=== PATIENT | female | born 1975 | race Caucasian/White ===

== ENCOUNTER 2018-09-25 12:46 | Emergency (ER) | payer MEDICARE ==
[~2018-09-25] VITALS: Ht 154.9 cm; Wt 72.7 kg
[~2018-09-25 12:46] MED LIST: DEXL30CA3 PO; ONDA4TAB6 PO; ONDA8TAB9 PO; POTA20TA19 PO; PROM25SU46 RC; ZOF4T PO
[2018-09-25] MEDS ORDERED: normal saline 1000ML IV soln IV ONE ×2 (13:10→15:15)
[2018-09-25] MEDS ORDERED: ondansetron/PF 4mg/2ml inj IV ONE ×3 (13:10→17:30)
[2018-09-25] MEDS ORDERED: HYDROmorphone 1 mg/ml syringe IV ONE ×3 (13:10→17:30)
[2018-09-25 14:41] LABS: BASOPHILS # (AUTO) 0.1 X10'3 (0-0.2); BASOPHILS % (AUTO) 0.7 % (0-1); EOSINOPHILS # (AUTO) 0.1 X10'3 (0-0.9); EOSINOPHILS % (AUTO) 0.7 % (0-6); HEMATOCRIT 46.8 % (35.0-45.0); HEMOGLOBIN 15.6 g/dl (12.0-16.0); LYMPHOCYTES # (AUTO) 2.6 X10'3 (1.1-4.8); LYMPHOCYTES % (AUTO) 15.4 % (21-51); MEAN CORPUSCULAR HEMOGLOBIN 29.8 PG (27.0-31.0); MEAN CORPUSCULAR HGB CONC 33.3 g/dL (33.0-36.5); MEAN CORPUSCULAR VOLUME 89.4 FL (78-98); MONOCYTES # (AUTO) 0.9 X10'3 (0-0.9); MONOCYTES % (AUTO) 5.4 % (2-12); NEUTROPHILS % (AUTO) 77.8 % (42-75); PLATELET COUNT 276 X10'3 (140-440); RED BLOOD COUNT 5.24 X10'6 (4.20-5.60); RED CELL DISTRIBUTION WIDTH 13.9 % (11.5-14.5); WHITE BLOOD COUNT 16.7 X10'3 (4.5-11.0)
[2018-09-25 14:43] LABS: URINE HCG NEGATIVE (NEG)
[2018-09-25 14:47] LABS: CLARITY,URINE CLEAR (Clear); COLOR,URINE YELLOW (Yellow); GLUCOSE, URINE NEGATIVE (Neg); KETONES,URINE NEGATIVE (Neg); LEUKOCYTE ESTERASE ,URINE NEGATIVE (Neg); NITRITES, URINE NEGATIVE (Neg); OCCULT BLOOD,URINE NEGATIVE (Neg); PH,URINE 5.5 (4.8-8.0); PROTEIN,URINE NEGATIVE (Neg); UROBILINOGEN,URINE 0.2 E.U/dL (0.2-1.0)
[2018-09-25 14:48] LABS: UA COLLECTION TYPE CLN CATCH MIDSTREAM
[2018-09-25 14:50] LABS: PROTHROMBIN TIME 9.9 SECONDS (9.0-12.0)
[2018-09-25 14:53] LABS: ALANINE AMINOTRANSFERASE 26 U/L (12-78); ALBUMIN 3.7 G/DL (3.4-5.0); ALBUMIN/GLOBULIN RATIO 0.9 (1.1-1.5); ALKALINE PHOSPHATASE 118 IU/L (46-116); ANION GAP 11 (8-16); ASPARTATE AMINO TRANSFERASE 17 U/L (10-37); BILIRUBIN,TOTAL 0.2 MG/DL (0.1-1.0); BLOOD UREA NITROGEN 11 MG/DL (7-18); BUN/CREATININE RATIO 14.9 (6.6-38.0); CALCIUM 9.5 MG/DL (8.5-10.1); CHLORIDE 105 MMOL/L (99-107); CREATININE 0.74 MG/DL (0.40-0.90); GLUCOSE 112 MG/DL (70-104); LIPASE 54 U/L (73-393); POTASSIUM 4.1 MMOL/L (3.5-5.1); SODIUM 141 MMOL/L (135-145); TOTAL CARBON DIOXIDE 25.5 MMOL/L (24-32); TOTAL PROTEIN 7.9 G/DL (6.4-8.2); eGFR 85 ML/MIN
[2018-09-25 14:56] LABS: PLATELET ESTIMATE NORMAL; TOTAL CELLS COUNTED 100
--- NOTE | 2018-09-25 14:57 | NUR ---
PT TO CT
[2018-09-25] MEDS ORDERED: levoFLOXACIN-Levaquin 750MG/D5 150 ML IV ONE (15:05)
--- NOTE | 2018-09-25 15:12 | NUR ---
PT BACK FROM CT
--- NOTE | 2018-09-25 15:39 | NUR ---
BRYCE LEE MADE AWARE PATIENT'S PEG TUBE FLUSHED (PER ORDER) WITHOUT DIFFICULTY, PATIENT REPORTED SLIGHT NAUSEA, PAIN 9/10 TO UPPER ABDOMEN. PA TO ENTER ORDERS.
[2018-09-25] MEDS ORDERED: LEVO500T89 PO (17:24)
[2018-09-25 17:55] VITALS: BP 127/66
== END 2018-09-25 17:57 | disposition home or self-care (01) ==
LOC: ER 12:47
DX: K94.22 Gastrostomy infection (principal); I10 Essential (primary) hypertension; J44.9 Chronic obstructive pulmonary disease, unspecified; K21.9 Gastro-esophageal reflux disease without esophagitis; G89.29 Other chronic pain; Z90.49 Acquired absence of other specified parts of digestive tract; Z90.710 Acquired absence of both cervix and uterus; Z98.890 Other specified postprocedural states; Z88.0 Allergy status to penicillin; Z88.5 Allergy status to narcotic agent; Z88.8 Allergy status to other drugs, medicaments and biological substances; Z88.1 Allergy status to other antibiotic agents; Z79.899 Other long term (current) drug therapy
CPT/HCPCS: 36415; 71045; 74176; 80053; 81003; 81025; 83605; 83690; 85025; 85610; 87040; 96365; 96366; 96375; 96376; 99284; J1170; J1956; J2405; J7030

== ENCOUNTER 2018-10-05 21:38 | Emergency (ER) | payer MEDICARE, MEDICAID ==
[~2018-10-05] VITALS: Ht 154.9 cm; Wt 75.0 kg
[~2018-10-05 21:38] MED LIST changes: +LEVO500T89 PO
--- NOTE | 2018-10-05 22:15 | NUR ---
BRYCE RODRIGEZ AT BEDSIDE WITH PT
[2018-10-05] MEDS ORDERED: azithromycin 250mg tablet PO ONE (22:25)
[2018-10-05] MEDS ORDERED: CefTRIAXone 250MG IM Kit w/LIDOcaine IM ONE (22:25)
[2018-10-05 22:47] LABS: BASOPHILS # (AUTO) 0.2 X10'3 (0-0.2); BASOPHILS % (AUTO) 1.3 % (0-1); EOSINOPHILS # (AUTO) 0.1 X10'3 (0-0.9); EOSINOPHILS % (AUTO) 0.6 % (0-6); HEMATOCRIT 45.3 % (35.0-45.0); HEMOGLOBIN 15.4 g/dl (12.0-16.0); LYMPHOCYTES # (AUTO) 2.7 X10'3 (1.1-4.8); LYMPHOCYTES % (AUTO) 19.3 % (21-51); MEAN CORPUSCULAR HEMOGLOBIN 29.9 PG (27.0-31.0); MEAN CORPUSCULAR HGB CONC 34.1 g/dL (33.0-36.5); MEAN CORPUSCULAR VOLUME 87.8 FL (78-98); MEAN PLATELET VOLUME 8.3 FL (7.4-10.4); MONOCYTES # (AUTO) 0.8 X10'3 (0-0.9); MONOCYTES % (AUTO) 5.6 % (2-12); NEUTROPHILS # (AUTO) 10.2 X10'3 (1.8-7.7); NEUTROPHILS % (AUTO) 73.2 % (42-75); PLATELET COUNT 346 X10'3 (140-440); RED BLOOD COUNT 5.16 X10'6 (4.20-5.60); RED CELL DISTRIBUTION WIDTH 13.8 % (11.5-14.5)
[2018-10-05 23:00] LABS: ALANINE AMINOTRANSFERASE 28 U/L (12-78); ALBUMIN/GLOBULIN RATIO 0.9 (1.1-1.5); ALKALINE PHOSPHATASE 123 IU/L (46-116); ANION GAP 10 (8-16); ASPARTATE AMINO TRANSFERASE 14 U/L (10-37); BILIRUBIN,TOTAL 0.2 MG/DL (0.1-1.0); BLOOD UREA NITROGEN 9 MG/DL (7-18); BUN/CREATININE RATIO 12.5 (6.6-38.0); CALCIUM 9.8 MG/DL (8.5-10.1); CHLORIDE 104 MMOL/L (99-107); CREATININE 0.72 MG/DL (0.40-0.90); GLUCOSE 109 MG/DL (70-104); POTASSIUM 3.7 MMOL/L (3.5-5.1); SODIUM 140 MMOL/L (135-145); TOTAL PROTEIN 8.6 G/DL (6.4-8.2); eGFR 88 ML/MIN
[2018-10-05] MEDS ORDERED: cefepime 2g/NS 100ml ADVANTAGE 100 ML IV ONE (23:40)
[2018-10-05] MEDS ORDERED: iohexol 300mg/ml 100ml inj. ONE (23:53)
[2018-10-06] MEDS ORDERED: TETanus/Pertussis (Acell)/Diphther VAC/PF (Tdap-Adult) 0.5ml syringe IM ONE (00:20)
[2018-10-06] MEDS ORDERED: ondansetron 4mg rapidly disintigrating tab PO ONE (00:30)
[2018-10-06 01:05] VITALS: BP 144/84
[2018-10-06] MEDS ORDERED: CEFP100T7 PO (01:22)
== END 2018-10-06 01:37 | disposition home or self-care (01) ==
LOC: ER 21:38
DX: K94.29 Other complications of gastrostomy (principal); R10.10 Upper abdominal pain, unspecified; I10 Essential (primary) hypertension; J44.9 Chronic obstructive pulmonary disease, unspecified; K21.9 Gastro-esophageal reflux disease without esophagitis; G89.29 Other chronic pain; Z90.49 Acquired absence of other specified parts of digestive tract; Z90.710 Acquired absence of both cervix and uterus; Z98.890 Other specified postprocedural states; Z88.0 Allergy status to penicillin; Z88.5 Allergy status to narcotic agent; Z88.1 Allergy status to other antibiotic agents; Z88.8 Allergy status to other drugs, medicaments and biological substances; Z79.899 Other long term (current) drug therapy
CPT/HCPCS: 36415; 74177; 80053; 85025; 90471; 90715; 96365; 99284; J0692; Q9967

== ENCOUNTER 2018-11-20 17:03 | Emergency (ER) | payer MEDICARE, MEDICAID ==
[~2018-11-20] VITALS: Ht 154.9 cm; Wt 81.0 kg
[~2018-11-20 17:03] MED LIST changes: +CEFP100T7 PO; -LEVO500T89 PO
[2018-11-20] MEDS ORDERED: normal saline 1000ML IV soln IV ONE (17:30)
--- NOTE | 2018-11-20 18:13 | NUR ---
having hard time getting iv established
[2018-11-20 18:22] LABS: CLARITY,URINE CLEAR (Clear); COLOR,URINE YELLOW (Yellow); GLUCOSE, URINE NEGATIVE (Neg); KETONES,URINE NEGATIVE (Neg); LEUKOCYTE ESTERASE ,URINE NEGATIVE (Neg); NITRITES, URINE NEGATIVE (Neg); OCCULT BLOOD,URINE NEGATIVE (Neg); PH,URINE 7.5 (4.8-8.0); PROTEIN,URINE NEGATIVE (Neg); UROBILINOGEN,URINE 0.2 E.U/dL (0.2-1.0)
[2018-11-20 18:26] LABS: UA COLLECTION TYPE CLN CATCH MIDSTREAM
[2018-11-20] MEDS ORDERED: magnesium 2GM in 50ml NS 50 ML IV ONE (20:05)
[2018-11-20 20:11] LABS: BASOPHILS # (AUTO) 0.2 X10'3 (0-0.2); BASOPHILS % (AUTO) 1.3 % (0-1); EOSINOPHILS # (AUTO) 0.1 X10'3 (0-0.9); EOSINOPHILS % (AUTO) 0.7 % (0-6); HEMATOCRIT 43.3 % (35.0-45.0); HEMOGLOBIN 14.7 g/dl (12.0-16.0); LYMPHOCYTES # (AUTO) 3.1 X10'3 (1.1-4.8); LYMPHOCYTES % (AUTO) 27.3 % (21-51); MEAN CORPUSCULAR HEMOGLOBIN 30.3 PG (27.0-31.0); MEAN CORPUSCULAR HGB CONC 33.9 g/dL (33.0-36.5); MEAN CORPUSCULAR VOLUME 89.4 FL (78-98); MONOCYTES # (AUTO) 0.7 X10'3 (0-0.9); MONOCYTES % (AUTO) 6.5 % (2-12); NEUTROPHILS # (AUTO) 7.3 X10'3 (1.8-7.7); NEUTROPHILS % (AUTO) 64.2 % (42-75); PLATELET COUNT 267 X10'3 (140-440); RED BLOOD COUNT 4.84 X10'6 (4.20-5.60); RED CELL DISTRIBUTION WIDTH 14.2 % (11.5-14.5); WHITE BLOOD COUNT 11.3 X10'3 (4.5-11.0)
[2018-11-20] MEDS ORDERED: CefTRIAXone/D5W-Rocephin 1gm 50 ML IV ONE (20:15)
[2018-11-20] MEDS ORDERED: HYDROmorphone inj. 0.5 MG/0.5 ML DISP.SYRIN IV ONE (20:15)
[2018-11-20] MEDS ORDERED: ondansetron/PF 4mg/2ml inj IV ONE (20:15)
[2018-11-20 20:27] LABS: ALANINE AMINOTRANSFERASE 32 U/L (12-78); ALBUMIN 3.6 G/DL (3.4-5.0); ALBUMIN/GLOBULIN RATIO 0.9 (1.1-1.5); ALKALINE PHOSPHATASE 114 IU/L (46-116); ANION GAP 8 (8-16); ASPARTATE AMINO TRANSFERASE 26 U/L (10-37); BILIRUBIN,TOTAL 0.2 MG/DL (0.1-1.0); BLOOD UREA NITROGEN 9 MG/DL (7-18); BUN/CREATININE RATIO 12.5 (6.6-38.0); CALCIUM 8.6 MG/DL (8.5-10.1); CHLORIDE 109 MMOL/L (99-107); CREATININE 0.72 MG/DL (0.40-0.90); GLUCOSE 83 MG/DL (70-104); SODIUM 144 MMOL/L (135-145); TOTAL CARBON DIOXIDE 26.8 MMOL/L (24-32); TOTAL PROTEIN 7.6 G/DL (6.4-8.2); eGFR 88 ML/MIN
[2018-11-20 20:29] LABS: POTASSIUM 4.3 MMOL/L (3.5-5.1)
[2018-11-20 20:41] LABS: URINE HCG NEGATIVE (NEG)
[2018-11-20] MEDS ORDERED: SULF1TAB49 PO (21:25)
[2018-11-20] MEDS ORDERED: CEPH-572 PO (21:25)
[2018-11-20 21:46] VITALS: BP 139/96
== END 2018-11-20 21:48 | disposition home or self-care (01) ==
LOC: ER 17:04
DX: L03.311 Cellulitis of abdominal wall (principal); R00.0 Tachycardia, unspecified; I10 Essential (primary) hypertension; J44.9 Chronic obstructive pulmonary disease, unspecified; K31.84 Gastroparesis; K21.9 Gastro-esophageal reflux disease without esophagitis; G89.29 Other chronic pain; Z87.11 Personal history of peptic ulcer disease; Z90.49 Acquired absence of other specified parts of digestive tract; Z98.890 Other specified postprocedural states; Z90.710 Acquired absence of both cervix and uterus; Z88.6 Allergy status to analgesic agent; Z88.0 Allergy status to penicillin; Z88.5 Allergy status to narcotic agent
CPT/HCPCS: 36415; 80053; 81003; 81025; 83605; 83735; 84145; 85025; 85610; 87040; 96365; 96375; 99283; J0696; J1170; J2405; J3475; J7030

== ENCOUNTER 2018-11-30 21:52 | Emergency (ER) | payer MEDICARE, MEDICAID ==
[~2018-11-30] VITALS: Ht 154.9 cm; Wt 77.0 kg
[~2018-11-30 21:52] MED LIST changes: +SULF1TAB49 PO
[2018-11-30 22:35] LABS: CLARITY,URINE CLEAR (Clear); COLOR,URINE YELLOW (Yellow); GLUCOSE, URINE NEGATIVE (Neg); KETONES,URINE NEGATIVE (Neg); LEUKOCYTE ESTERASE ,URINE NEGATIVE (Neg); NITRITES, URINE NEGATIVE (Neg); OCCULT BLOOD,URINE NEGATIVE (Neg); PH,URINE 6.5 (4.8-8.0); PROTEIN,URINE NEGATIVE (Neg); UROBILINOGEN,URINE 0.2 E.U/dL (0.2-1.0)
[2018-11-30 22:40] LABS: UA COLLECTION TYPE CLN CATCH MIDSTREAM
[2018-11-30] MEDS ORDERED: normal saline 1000ml 1,000 ML IV ONE (22:45)
[2018-11-30 23:07] LABS: BASOPHILS # (AUTO) 0.2 X10'3 (0-0.2); BASOPHILS % (AUTO) 1.9 % (0-1); EOSINOPHILS # (AUTO) 0.3 X10'3 (0-0.9); EOSINOPHILS % (AUTO) 2.4 % (0-6); HEMATOCRIT 40.5 % (35.0-45.0); HEMOGLOBIN 13.8 g/dl (12.0-16.0); LYMPHOCYTES # (AUTO) 4.4 X10'3 (1.1-4.8); LYMPHOCYTES % (AUTO) 40.7 % (21-51); MEAN CORPUSCULAR HEMOGLOBIN 30.6 PG (27.0-31.0); MEAN CORPUSCULAR HGB CONC 34.1 g/dL (33.0-36.5); MEAN CORPUSCULAR VOLUME 89.7 FL (78-98); MEAN PLATELET VOLUME 8.9 FL (7.4-10.4); MONOCYTES # (AUTO) 1.1 X10'3 (0-0.9); NEUTROPHILS # (AUTO) 4.8 X10'3 (1.8-7.7); PLATELET COUNT 267 X10'3 (140-440); RED BLOOD COUNT 4.52 X10'6 (4.20-5.60); RED CELL DISTRIBUTION WIDTH 14.4 % (11.5-14.5); WHITE BLOOD COUNT 10.8 X10'3 (4.5-11.0)
[2018-11-30] MEDS ORDERED: iohexol 300mg/ml 100ml inj. ONE (23:10)
--- NOTE | 2018-11-30 23:13 | NUR ---
ATTEMPTED IV, DID NOT THREAD. PT HAS NO EJS EITHER. AWAITING FOR THE MACHINE
[2018-11-30 23:26] LABS: PARTIAL THROMBOPLASTIN TIME 26 SECONDS (22-32)
[2018-11-30 23:29] LABS: ALANINE AMINOTRANSFERASE 35 U/L (12-78); ALBUMIN 3.5 G/DL (3.4-5.0); ALBUMIN/GLOBULIN RATIO 0.9 (1.1-1.5); ALKALINE PHOSPHATASE 114 IU/L (46-116); ANION GAP 5 (8-16); ASPARTATE AMINO TRANSFERASE 19 U/L (10-37); BILIRUBIN,TOTAL 0.2 MG/DL (0.1-1.0); BLOOD UREA NITROGEN 9 MG/DL (7-18); BUN/CREATININE RATIO 12.9 (6.6-38.0); CALCIUM 9.1 MG/DL (8.5-10.1); CHLORIDE 107 MMOL/L (99-107); GLUCOSE 107 MG/DL (70-104); POTASSIUM 3.9 MMOL/L (3.5-5.1); SODIUM 140 MMOL/L (135-145); TOTAL CARBON DIOXIDE 28.2 MMOL/L (24-32); TOTAL PROTEIN 7.2 G/DL (6.4-8.2); eGFR 90 ML/MIN
[2018-12-01 00:03] VITALS: BP 145/97
[2018-12-01] MEDS ORDERED: ketorolac tromethamine 15mg/ml inj. IV ONE (00:10)
[2018-12-01] MEDS ORDERED: ketorolac trometh. 30mg/ml inj. IV ONE (00:10)
--- NOTE | 2018-12-01 00:14 | NUR ---
pt refuses toradol for pain stating it is ineffective/doesn't work. pt takes methadone at home for pain control. Morphine listed as an allergen.
[2018-12-01] MEDS ORDERED: fentaNYL/PF 50MCG/1 ML 2ML syringe IV ONE (00:35)
== END 2018-12-01 01:35 | disposition home or self-care (01) ==
LOC: ER 21:53
DX: T85.79XA Infection and inflammatory reaction due to other internal prosthetic devices, implants and grafts, initial encounter (principal); I10 Essential (primary) hypertension; J44.9 Chronic obstructive pulmonary disease, unspecified; K21.9 Gastro-esophageal reflux disease without esophagitis; Z87.11 Personal history of peptic ulcer disease; G89.29 Other chronic pain; Z90.49 Acquired absence of other specified parts of digestive tract; Z90.710 Acquired absence of both cervix and uterus; Z98.890 Other specified postprocedural states; Z88.6 Allergy status to analgesic agent; Z88.8 Allergy status to other drugs, medicaments and biological substances; Z88.0 Allergy status to penicillin; Z88.5 Allergy status to narcotic agent; Z79.899 Other long term (current) drug therapy; Y92.89 Other specified places as the place of occurrence of the external cause
CPT/HCPCS: 36415; 74177; 80053; 81003; 83605; 84145; 85025; 85610; 85730; 96374; 99284; J1885; J3010; J7030; Q9967; 96361

== ENCOUNTER 2018-12-22 01:49 | Emergency (ER) | payer MEDICARE, MEDICAID ==
[~2018-12-22] VITALS: Ht 154.9 cm; Wt 83.6 kg
[~2018-12-22 01:49] MED LIST changes: -SULF1TAB49 PO
[2018-12-22 03:11] LABS: CLARITY,URINE CLEAR (Clear); COLOR,URINE YELLOW (Yellow); GLUCOSE, URINE NEGATIVE (Neg); KETONES,URINE NEGATIVE (Neg); LEUKOCYTE ESTERASE ,URINE NEGATIVE (Neg); NITRITES, URINE NEGATIVE (Neg); OCCULT BLOOD,URINE TRACE-LYSED (Neg); PROTEIN,URINE NEGATIVE (Neg); UROBILINOGEN,URINE 0.2 E.U/dL (0.2-1.0)
[2018-12-22 03:13] LABS: ALANINE AMINOTRANSFERASE 34 U/L (12-78); ALBUMIN 3.7 G/DL (3.4-5.0); ALBUMIN/GLOBULIN RATIO 0.9 (1.1-1.5); ALKALINE PHOSPHATASE 118 IU/L (46-116); ANION GAP 8 (8-16); ASPARTATE AMINO TRANSFERASE 17 U/L (10-37); BILIRUBIN,TOTAL 0.1 MG/DL (0.1-1.0); BLOOD UREA NITROGEN 18 MG/DL (7-18); CALCIUM 8.8 MG/DL (8.5-10.1); CHLORIDE 107 MMOL/L (99-107); CREATININE 0.75 MG/DL (0.40-0.90); GLUCOSE 134 MG/DL (70-104); POTASSIUM 3.7 MMOL/L (3.5-5.1); SODIUM 142 MMOL/L (135-145); TOTAL CARBON DIOXIDE 26.7 MMOL/L (24-32); TOTAL PROTEIN 7.6 G/DL (6.4-8.2); eGFR 84 ML/MIN
[2018-12-22 03:14] LABS: BASOPHILS # (AUTO) 0.1 X10'3 (0-0.2); EOSINOPHILS # (AUTO) 0.1 X10'3 (0-0.9); EOSINOPHILS % (AUTO) 0.8 % (0-6); HEMATOCRIT 41.5 % (35.0-45.0); HEMOGLOBIN 14.1 g/dl (12.0-16.0); LYMPHOCYTES # (AUTO) 3.6 X10'3 (1.1-4.8); LYMPHOCYTES % (AUTO) 25.1 % (21-51); MEAN CORPUSCULAR HEMOGLOBIN 30.4 PG (27.0-31.0); MEAN CORPUSCULAR HGB CONC 33.9 g/dL (33.0-36.5); MEAN CORPUSCULAR VOLUME 89.5 FL (78-98); MEAN PLATELET VOLUME 9.2 FL (7.4-10.4); MONOCYTES % (AUTO) 7.3 % (2-12); NEUTROPHILS # (AUTO) 9.4 X10'3 (1.8-7.7); NEUTROPHILS % (AUTO) 65.8 % (42-75); PLATELET COUNT 243 X10'3 (140-440); RED BLOOD COUNT 4.63 X10'6 (4.20-5.60); RED CELL DISTRIBUTION WIDTH 14.3 % (11.5-14.5); WHITE BLOOD COUNT 14.3 X10'3 (4.5-11.0)
[2018-12-22 03:26] LABS: UA COLLECTION TYPE CLN CATCH MIDSTREAM
[2018-12-22 03:27] LABS: BACTERIA,URINE FEW /HPF (Neg); RBC,URINE 0-2 /HPF (0-2); SQUAMOUS EPITHELIAL CELL,UR FEW /LPF (FEW); WBC,URINE 0-4 /HPF (0-4)
[2018-12-22] MEDS ORDERED: ondansetron/PF 4mg/2ml inj IV ONE (03:30)
[2018-12-22] MEDS ORDERED: normal saline 1000ML IV soln IVB ONE (03:30)
[2018-12-22] MEDS ORDERED: HYDROmorphone 1 mg/ml syringe IV ONE ×2 (03:30→06:25)
[2018-12-22] MEDS: diatr meglu/diatrizoate 30ml oral sol.-(3 dose) bottle PO SCH ×3 (03:39→05:00)
--- NOTE | 2018-12-22 03:45 | NUR ---
DISCUSSED GASTROVIEW CONTRAST WITH SPENCER FUENTES, ONLY 2 OF THE 3 DOSES ORDERED
[2018-12-22 03:53] LABS: PARTIAL THROMBOPLASTIN TIME 30 SECONDS (22-32)
--- NOTE | 2018-12-22 04:20 | NUR ---
PT AMBULATED TO BATHROOM AND ABD DRESSING FELL OFF. REPLACED WITH 4X4 GAUZE AND TAPE.
[2018-12-22] MEDS ORDERED: iohexol 300mg/ml 100ml inj. ONE (04:26)
--- NOTE | 2018-12-22 04:42 | NUR ---
PT TO CT
[2018-12-22 05:01] VITALS: BP 123/86
[2018-12-22] MEDS ORDERED: dicyclomine 10 MG capsule PO ONE (06:25)
== END 2018-12-22 07:00 | disposition home or self-care (01) ==
LOC: ER 01:50
DX: K31.6 Fistula of stomach and duodenum (principal); K31.84 Gastroparesis; L98.9 Disorder of the skin and subcutaneous tissue, unspecified; I10 Essential (primary) hypertension; J44.9 Chronic obstructive pulmonary disease, unspecified; K21.9 Gastro-esophageal reflux disease without esophagitis; G89.29 Other chronic pain; F17.210 Nicotine dependence, cigarettes, uncomplicated; R79.1 Abnormal coagulation profile; Z93.1 Gastrostomy status; Z90.49 Acquired absence of other specified parts of digestive tract; Z90.710 Acquired absence of both cervix and uterus; Z98.890 Other specified postprocedural states; Z88.0 Allergy status to penicillin; Z88.8 Allergy status to other drugs, medicaments and biological substances; Z79.899 Other long term (current) drug therapy
CPT/HCPCS: 36415; 71045; 74177; 80053; 81001; 83605; 84145; 85025; 85610; 85730; 87040; 96374; 96375; 96376; 99284; J1170; J2405; J7030; Q9963; Q9967

== ENCOUNTER 2019-10-28 14:55 | Emergency (ER) | payer MEDICARE, MEDICAID ==
[~2019-10-28] VITALS: Ht 167.6 cm; Wt 91.0 kg
[~2019-10-28 14:55] MED LIST changes: +CEPH500C5 PO
[2019-10-28] MEDS ORDERED: HYDROmorphone inj. 0.5 MG/0.5 ML DISP.SYRIN IV ONE ×2 (16:35→18:55)
[2019-10-28] MEDS ORDERED: ondansetron/PF 4mg/2ml inj IV ONE ×2 (16:35→18:55)
[2019-10-28] MEDS ORDERED: LORazepam 2 mg/ml vial IV ONE (16:35)
[2019-10-28] MEDS ORDERED: normal saline 1000ML IV soln IVB ONE (16:35)
[2019-10-28 17:29] LABS: CLARITY,URINE CLOUDY (Clear); COLOR,URINE YELLOW (Yellow); GLUCOSE, URINE NEGATIVE (Neg); KETONES,URINE NEGATIVE (Neg); LEUKOCYTE ESTERASE ,URINE NEGATIVE (Neg); NITRITES, URINE NEGATIVE (Neg); OCCULT BLOOD,URINE TRACE-INTACT (Neg); PH,URINE 5.5 (4.8-8.0); PROTEIN,URINE NEGATIVE (Neg); UROBILINOGEN,URINE 0.2 E.U/dL (0.2-1.0)
[2019-10-28 17:30] LABS: URINE HCG NEGATIVE (NEG)
[2019-10-28 17:33] LABS: UA COLLECTION TYPE NON-SPECIFIED
[2019-10-28 17:34] LABS: MUCUS STRANDS MANY /LPF (Neg); SQUAMOUS EPITHELIAL CELL,UR MANY /LPF (FEW)
[2019-10-28 17:35] LABS: HYALINE CASTS 0-3 /LPF (NEGATIVE)
[2019-10-28 17:36] LABS: BACTERIA,URINE FEW /HPF (Neg); WBC,URINE 0-4 /HPF (0-4)
[2019-10-28 17:43] LABS: URINE AMPHETAMINE SCREEN NEGATIVE (Neg); URINE BARBITUATE SCREEN NEGATIVE (Neg); URINE BENZODIAZEPINES SCREEN NEGATIVE (Neg); URINE CANNABINOID SCREEN POSITIVE (Neg); URINE COCAINE SCREEN NEGATIVE (Neg); URINE METHADONE SCREEN POSITIVE (Neg); URINE OPIATE SCREEN NEGATIVE (Neg); URINE PHENCYCLIDINE SCREEN NEGATIVE (Neg)
[2019-10-28 17:53] LABS: BASOPHILS # (AUTO) 0.1 X10'3 (0-0.2); BASOPHILS % (AUTO) 0.3 % (0-1); EOSINOPHILS # (AUTO) 0.1 X10'3 (0-0.9); EOSINOPHILS % (AUTO) 0.4 % (0-6); HEMATOCRIT 47.6 % (35.0-45.0); HEMOGLOBIN 15.8 g/dl (12.0-16.0); LYMPHOCYTES # (AUTO) 1.6 X10'3 (1.1-4.8); LYMPHOCYTES % (AUTO) 8.5 % (21-51); MEAN CORPUSCULAR HEMOGLOBIN 29.8 PG (27.0-31.0); MEAN CORPUSCULAR HGB CONC 33.1 g/dL (33.0-36.5); MEAN PLATELET VOLUME 9.6 FL (7.4-10.4); MONOCYTES # (AUTO) 0.5 X10'3 (0-0.9); MONOCYTES % (AUTO) 2.6 % (2-12); NEUTROPHILS # (AUTO) 17.1 X10'3 (1.8-7.7); NEUTROPHILS % (AUTO) 88.2 % (42-75); PLATELET COUNT 295 X10'3 (140-440); RED BLOOD COUNT 5.29 X10'6 (4.20-5.60); RED CELL DISTRIBUTION WIDTH 14.5 % (11.5-14.5); WHITE BLOOD COUNT 19.3 X10'3 (4.5-11.0)
[2019-10-28 18:11] LABS: ALANINE AMINOTRANSFERASE 35 U/L (12-78); ALBUMIN 3.7 G/DL (3.4-5.0); ALBUMIN/GLOBULIN RATIO 0.9 (1.1-1.5); ALKALINE PHOSPHATASE 137 IU/L (46-116); ANION GAP 7 (8-16); ASPARTATE AMINO TRANSFERASE 22 U/L (10-37); BILIRUBIN,TOTAL 0.3 MG/DL (0.1-1.0); BLOOD UREA NITROGEN 16 MG/DL (7-18); CALCIUM 9.2 MG/DL (8.5-10.1); CHLORIDE 108 MMOL/L (99-107); CREATININE 0.89 MG/DL (0.40-0.90); GLUCOSE 121 MG/DL (70-104); LIPASE 52 U/L (73-393); POTASSIUM 4.2 MMOL/L (3.5-5.1); SODIUM 143 MMOL/L (135-145); TOTAL CARBON DIOXIDE 28.3 MMOL/L (24-32); TOTAL PROTEIN 7.6 G/DL (6.4-8.2); eGFR 68 ML/MIN
[2019-10-28 18:30] VITALS: BP 122/66
== END 2019-10-28 19:38 | disposition home or self-care (01) ==
LOC: ER 14:56
DX: K31.84 Gastroparesis (principal); R19.7 Diarrhea, unspecified; R11.10 Vomiting, unspecified; I10 Essential (primary) hypertension; J44.9 Chronic obstructive pulmonary disease, unspecified; K21.9 Gastro-esophageal reflux disease without esophagitis; G89.29 Other chronic pain; F32.9 Major depressive disorder, single episode, unspecified; F17.200 Nicotine dependence, unspecified, uncomplicated; Z87.11 Personal history of peptic ulcer disease; Z90.89 Acquired absence of other organs; Z90.49 Acquired absence of other specified parts of digestive tract; Z90.710 Acquired absence of both cervix and uterus; Z98.890 Other specified postprocedural states; Z88.1 Allergy status to other antibiotic agents; Z88.5 Allergy status to narcotic agent; Z88.8 Allergy status to other drugs, medicaments and biological substances; Z79.2 Long term (current) use of antibiotics; Z79.899 Other long term (current) drug therapy
CPT/HCPCS: 36415; 71045; 80053; 80305; 81001; 81025; 83690; 85025; 96361; 96374; 96375; 96376; 99284; J1170; J2060; J2405; J7030

== ENCOUNTER 2019-11-05 01:36 | Emergency (ER) | payer MEDICARE, MEDICAID ==
[~2019-11-05] VITALS: Ht 154.9 cm; Wt 81.0 kg
[2019-11-05] MEDS ORDERED: DOL10T PO (01:52)
[2019-11-05] MEDS ORDERED: ONDA4TAB12 PO (01:54)
[2019-11-05] MEDS ORDERED: OMEP40CA13 PO (01:58)
[2019-11-05 02:26] LABS: BASOPHILS # (AUTO) 0.2 X10'3 (0-0.2); BASOPHILS % (AUTO) 1.2 % (0-1); EOSINOPHILS # (AUTO) 0.5 X10'3 (0-0.9); EOSINOPHILS % (AUTO) 3.7 % (0-6); HEMATOCRIT 44.7 % (35.0-45.0); HEMOGLOBIN 15.2 g/dl (12.0-16.0); LYMPHOCYTES # (AUTO) 4.4 X10'3 (1.1-4.8); LYMPHOCYTES % (AUTO) 34.9 % (21-51); MEAN CORPUSCULAR HEMOGLOBIN 30.8 PG (27.0-31.0); MEAN CORPUSCULAR HGB CONC 33.9 g/dL (33.0-36.5); MEAN CORPUSCULAR VOLUME 90.7 FL (78-98); MEAN PLATELET VOLUME 9.5 FL (7.4-10.4); MONOCYTES # (AUTO) 0.7 X10'3 (0-0.9); MONOCYTES % (AUTO) 5.4 % (2-12); NEUTROPHILS # (AUTO) 6.9 X10'3 (1.8-7.7); NEUTROPHILS % (AUTO) 54.8 % (42-75); PLATELET COUNT 273 X10'3 (140-440); RED BLOOD COUNT 4.93 X10'6 (4.20-5.60); RED CELL DISTRIBUTION WIDTH 14.1 % (11.5-14.5); WHITE BLOOD COUNT 12.5 X10'3 (4.5-11.0)
[2019-11-05 02:32] LABS: ALANINE AMINOTRANSFERASE 47 U/L (12-78); ALBUMIN 3.6 G/DL (3.4-5.0); ALBUMIN/GLOBULIN RATIO 0.9 (1.1-1.5); ALKALINE PHOSPHATASE 125 IU/L (46-116); ANION GAP 9 (8-16); ASPARTATE AMINO TRANSFERASE 22 U/L (10-37); BILIRUBIN,TOTAL 0.2 MG/DL (0.1-1.0); BLOOD UREA NITROGEN 13 MG/DL (7-18); CALCIUM 9.4 MG/DL (8.5-10.1); CHLORIDE 108 MMOL/L (99-107); CREATININE 0.81 MG/DL (0.40-0.90); GLUCOSE 143 MG/DL (70-104); LIPASE 74 U/L (73-393); POTASSIUM 3.3 MMOL/L (3.5-5.1); SODIUM 145 MMOL/L (135-145); TOTAL CARBON DIOXIDE 27.8 MMOL/L (24-32); TOTAL PROTEIN 7.4 G/DL (6.4-8.2); eGFR 76 ML/MIN
[2019-11-05] MEDS ORDERED: normal saline 1000ML IV soln IVB ONE (02:35)
[2019-11-05] MEDS ORDERED: pantoprazole 40 MG vial IV ONE (02:35)
[2019-11-05] MEDS ORDERED: LORazepam 2 mg/ml vial IV ONE ×2 (02:35)
[2019-11-05] MEDS ORDERED: ondansetron/PF 4mg/2ml inj IV ONE (02:35)
[2019-11-05 03:11] LABS: URINE HCG NEGATIVE (NEG)
--- NOTE | 2019-11-05 03:26 | NUR ---
patient request to see Dr Jaimes to bedside, requesting saranya avelar and navarro as that is what work for her
--- NOTE | 2019-11-05 03:56 | NUR ---
Patient reports if we dont get this pain flare up under control I will keep vomitting. Vomitus x 4 since triage. 50 ml each time thick brown. Watching program on cell phone. IV initiated after 3 attempts
--- NOTE | 2019-11-05 04:11 | NUR ---
0310 patient refused lorazepam she had takine xanax earlier and reports fearful of over dosing.
--- NOTE | 2019-11-05 04:12 | NUR ---
APatient reports taken methadone prior to coming to hospital and requesting dialudid to get this pain under control otherwise will be here all night puking. Dr Jaimes updated of retching post IV zofran
--- NOTE | 2019-11-05 04:27 | NUR ---
tapped bottom of IV tape reports IV will fall out if I do not double tape it Dr Jaimes at bedside. to speak to partient regarding plan
[2019-11-05] MEDS ORDERED: diazepam inj 5 MG/ML inj. IV ONE (04:30)
--- NOTE | 2019-11-05 05:00 | NUR ---
sluured speech post Valium IV patietn reports feeling nauseated. No wretching at this time. IVF rate slowed down patient stated site feels to cold
[2019-11-05] MEDS ORDERED: HYDROmorphone 1 mg/ml syringe IV ONE (05:20)
[2019-11-05] MEDS ORDERED: HYDROmorphone inj. 0.5 MG/0.5 ML DISP.SYRIN IV ONE (05:25)
[2019-11-05 06:03] VITALS: BP 128/68
== END 2019-11-05 06:05 | disposition home or self-care (01) ==
LOC: ER 01:36
DX: K31.84 Gastroparesis (principal); R11.10 Vomiting, unspecified; I10 Essential (primary) hypertension; J44.9 Chronic obstructive pulmonary disease, unspecified; K21.9 Gastro-esophageal reflux disease without esophagitis; G89.29 Other chronic pain; F17.200 Nicotine dependence, unspecified, uncomplicated; F32.9 Major depressive disorder, single episode, unspecified; Z90.49 Acquired absence of other specified parts of digestive tract; Z90.710 Acquired absence of both cervix and uterus; Z98.890 Other specified postprocedural states; Z88.5 Allergy status to narcotic agent; Z88.8 Allergy status to other drugs, medicaments and biological substances; Z79.899 Other long term (current) drug therapy
CPT/HCPCS: 36415; 80053; 81025; 83690; 85025; 96361; 96374; 96375; 99284; C9113; J1170; J2405; J3360; J7030

== ENCOUNTER 2020-03-04 00:21 | Emergency (ER) | payer MEDICARE, MEDICAID ==
[~2020-03-04] VITALS: Ht 182.9 cm; Wt 72.7 kg
[~2020-03-04 00:21] MED LIST changes: -CEFP100T7 PO; -CEPH500C5 PO; -DEXL30CA3 PO; +DOL10T PO; +OMEP40CA13 PO; +ONDA4TAB12 PO; -ONDA4TAB6 PO; -ONDA8TAB9 PO; -POTA20TA19 PO; -PROM25SU46 RC; -ZOF4T PO
[2020-03-04] MEDS ORDERED: normal saline 1000ML IV soln IVB ONE ×2 (00:30→02:10)
[2020-03-04 00:59] LABS: BASOPHILS # (AUTO) 0.1 X10'3 (0-0.2); BASOPHILS % (AUTO) 0.8 % (0-1); EOSINOPHILS # (AUTO) 0.4 X10'3 (0-0.9); EOSINOPHILS % (AUTO) 3.7 % (0-6); HEMATOCRIT 42.6 % (35.0-45.0); HEMOGLOBIN 14.2 g/dl (12.0-16.0); LYMPHOCYTES # (AUTO) 4.8 X10'3 (1.1-4.8); LYMPHOCYTES % (AUTO) 39.5 % (21-51); MEAN CORPUSCULAR HEMOGLOBIN 29.6 PG (27.0-31.0); MEAN CORPUSCULAR HGB CONC 33.3 g/dL (33.0-36.5); MEAN CORPUSCULAR VOLUME 88.9 FL (78-98); MEAN PLATELET VOLUME 9.2 FL (7.4-10.4); MONOCYTES # (AUTO) 0.7 X10'3 (0-0.9); MONOCYTES % (AUTO) 5.8 % (2-12); NEUTROPHILS # (AUTO) 6.1 X10'3 (1.8-7.7); NEUTROPHILS % (AUTO) 50.2 % (42-75); PLATELET COUNT 252 X10'3 (140-440); RED BLOOD COUNT 4.79 X10'6 (4.20-5.60); RED CELL DISTRIBUTION WIDTH 14.6 % (11.5-14.5); WHITE BLOOD COUNT 12.2 X10'3 (4.5-11.0)
[2020-03-04] MEDS ORDERED: metoclopramide 5 mg/ml inj IV ONE (01:00)
[2020-03-04] MEDS ORDERED: haloperidol lactate 5mg/ml inj IM ONE (01:00)
[2020-03-04 01:03] LABS: URINE HCG NEGATIVE (NEG)
[2020-03-04 01:06] LABS: CLARITY,URINE CLEAR (Clear); COLOR,URINE YELLOW (Yellow); GLUCOSE, URINE NEGATIVE (Neg); KETONES,URINE NEGATIVE (Neg); LEUKOCYTE ESTERASE ,URINE NEGATIVE (Neg); NITRITES, URINE NEGATIVE (Neg); OCCULT BLOOD,URINE NEGATIVE (Neg); PROTEIN,URINE NEGATIVE (Neg); UROBILINOGEN,URINE 0.2 E.U/dL (0.2-1.0)
[2020-03-04 01:08] LABS: UA COLLECTION TYPE NON-SPECIFIED
[2020-03-04 01:12] LABS: ALANINE AMINOTRANSFERASE 26 U/L (12-78); ALBUMIN 3.5 G/DL (3.4-5.0); ALBUMIN/GLOBULIN RATIO 0.9 (1.1-1.5); ALKALINE PHOSPHATASE 151 IU/L (46-116); ANION GAP 6 (8-16); ASPARTATE AMINO TRANSFERASE 12 U/L (10-37); BILIRUBIN,TOTAL 0.1 MG/DL (0.1-1.0); BLOOD UREA NITROGEN 17 MG/DL (7-18); BUN/CREATININE RATIO 20.7 (6.6-38.0); CALCIUM 8.6 MG/DL (8.5-10.1); CHLORIDE 107 MMOL/L (99-107); CREATININE 0.82 MG/DL (0.40-0.90); GLUCOSE 138 MG/DL (70-104); LIPASE 83 U/L (73-393); POTASSIUM 3.7 MMOL/L (3.5-5.1); SODIUM 142 MMOL/L (135-145); TOTAL CARBON DIOXIDE 28.6 MMOL/L (24-32); TOTAL PROTEIN 7.3 G/DL (6.4-8.2); eGFR 75 ML/MIN
[2020-03-04] MEDS ORDERED: ondansetron/PF 4mg/2ml inj IV ONE (01:15)
[2020-03-04] MEDS ORDERED: pantoprazole 40 MG vial IV ONE (02:10)
[2020-03-04] MEDS ORDERED: LORazepam 2 mg/ml vial IV ONE (02:10)
[2020-03-04] MEDS ORDERED: famotidine/PF 10 mg/ml inj IV ONE (02:10)
[2020-03-04] MEDS ORDERED: HYDROmorphone 1 mg/ml syringe IV ONE ×4 (02:10→03:10)
[2020-03-04] MEDS ORDERED: ONDA4TAB6 PO ×2 (03:03→03:31)
[2020-03-04 03:42] VITALS: BP 144/86
== END 2020-03-04 03:45 | disposition home or self-care (01) ==
LOC: ER 00:22
DX: K31.84 Gastroparesis (principal); I10 Essential (primary) hypertension; J44.9 Chronic obstructive pulmonary disease, unspecified; K21.9 Gastro-esophageal reflux disease without esophagitis; G89.29 Other chronic pain; F32.9 Major depressive disorder, single episode, unspecified; Z90.49 Acquired absence of other specified parts of digestive tract; Z90.710 Acquired absence of both cervix and uterus; Z98.890 Other specified postprocedural states; Z88.8 Allergy status to other drugs, medicaments and biological substances; Z88.5 Allergy status to narcotic agent; Z79.899 Other long term (current) drug therapy
CPT/HCPCS: 36415; 80053; 81003; 81025; 83690; 85025; 96361; 96374; 96375; 96376; 99284; C9113; J1170; J2060; J2405; J3490; J7030

== ENCOUNTER 2020-04-29 14:01 | Emergency (ER) | payer MEDICARE, MEDICAID ==
[~2020-04-29] VITALS: Ht 154.9 cm; Wt 72.7 kg
[~2020-04-29 14:01] MED LIST changes: +ONDA4TAB6 PO
[2020-04-29] MEDS ORDERED: LORazepam 2 mg/ml vial IV ONE ×2 (14:35→15:15)
[2020-04-29] MEDS ORDERED: normal saline 1000ML IV soln IV ONE (14:35)
[2020-04-29] MEDS ORDERED: ondansetron/PF 4mg/2ml inj IV ONE ×2 (14:35→16:00)
[2020-04-29 14:41] LABS: BASOPHILS # (AUTO) 0.2 X10'3 (0-0.2); EOSINOPHILS # (AUTO) 0.3 X10'3 (0-0.9); EOSINOPHILS % (AUTO) 1.9 % (0-6); HEMATOCRIT 43.3 % (35.0-45.0); HEMOGLOBIN 14.4 g/dl (12.0-16.0); LYMPHOCYTES # (AUTO) 4.2 X10'3 (1.1-4.8); LYMPHOCYTES % (AUTO) 27.9 % (21-51); MEAN CORPUSCULAR HEMOGLOBIN 29.5 PG (27.0-31.0); MEAN CORPUSCULAR HGB CONC 33.2 g/dL (33.0-36.5); MEAN CORPUSCULAR VOLUME 88.9 FL (78-98); MONOCYTES # (AUTO) 0.9 X10'3 (0-0.9); MONOCYTES % (AUTO) 6.1 % (2-12); NEUTROPHILS # (AUTO) 9.6 X10'3 (1.8-7.7); NEUTROPHILS % (AUTO) 63.1 % (42-75); PLATELET COUNT 297 X10'3 (140-440); RED BLOOD COUNT 4.87 X10'6 (4.20-5.60); RED CELL DISTRIBUTION WIDTH 15.7 % (11.5-14.5); WHITE BLOOD COUNT 15.1 X10'3 (4.5-11.0)
[2020-04-29 15:02] LABS: ALANINE AMINOTRANSFERASE 36 U/L (12-78); ALBUMIN 3.7 G/DL (3.4-5.0); ALBUMIN/GLOBULIN RATIO 0.9 (1.1-1.5); ALKALINE PHOSPHATASE 143 IU/L (46-116); ANION GAP 10 (8-16); ASPARTATE AMINO TRANSFERASE 21 U/L (10-37); BILIRUBIN,TOTAL 0.2 MG/DL (0.1-1.0); BLOOD UREA NITROGEN 14 MG/DL (7-18); BUN/CREATININE RATIO 16.3 (6.6-38.0); CALCIUM 8.5 MG/DL (8.5-10.1); CHLORIDE 109 MMOL/L (99-107); CREATININE 0.86 MG/DL (0.40-0.90); GLUCOSE 154 MG/DL (70-104); LIPASE 67 U/L (73-393); POTASSIUM 3.6 MMOL/L (3.5-5.1); SODIUM 142 MMOL/L (135-145); TOTAL CARBON DIOXIDE 23.5 MMOL/L (24-32); TOTAL PROTEIN 7.6 G/DL (6.4-8.2); eGFR 71 ML/MIN
[2020-04-29] MEDS ORDERED: famotidine/PF 10 mg/ml inj IV ONE (15:15)
[2020-04-29] MEDS ORDERED: pantoprazole 40 MG vial IV ONE (15:15)
[2020-04-29 15:29] LABS: URINE HCG NEGATIVE (NEG)
[2020-04-29 15:37] LABS: CLARITY,URINE CLEAR (Clear); COLOR,URINE YELLOW (Yellow); GLUCOSE, URINE NEGATIVE (Neg); KETONES,URINE TRACE mg/dl (Neg); LEUKOCYTE ESTERASE ,URINE NEGATIVE (Neg); NITRITES, URINE NEGATIVE (Neg); OCCULT BLOOD,URINE NEGATIVE (Neg); PH,URINE 5.5 (4.8-8.0); PROTEIN,URINE NEGATIVE (Neg)
[2020-04-29 15:43] LABS: UA COLLECTION TYPE CLN CATCH MIDSTREAM
[2020-04-29] MEDS ORDERED: HYDROmorphone 1 mg/ml syringe IV ONE (16:00)
[2020-04-29] MEDS ORDERED: ONDA4TAB6 PO (16:30)
[2020-04-29 16:37] VITALS: BP 139/87
== END 2020-04-29 16:46 | disposition home or self-care (01) ==
LOC: ER 14:01
DX: R11.2 Nausea with vomiting, unspecified (principal); R10.9 Unspecified abdominal pain; I10 Essential (primary) hypertension; J44.9 Chronic obstructive pulmonary disease, unspecified; K21.9 Gastro-esophageal reflux disease without esophagitis; G89.29 Other chronic pain; F32.9 Major depressive disorder, single episode, unspecified; Z90.49 Acquired absence of other specified parts of digestive tract; Z90.710 Acquired absence of both cervix and uterus; Z88.5 Allergy status to narcotic agent; Z88.8 Allergy status to other drugs, medicaments and biological substances; Z79.899 Other long term (current) drug therapy
CPT/HCPCS: 36415; 80053; 81003; 81025; 83690; 85025; 96361; 96374; 96375; 96376; 99284; C9113; J1170; J2060; J2405; J3490; J7030

== ENCOUNTER 2020-06-03 08:39 | Emergency (ER) | payer MEDICARE, MEDICAID ==
[~2020-06-03] VITALS: Ht 154.9 cm; Wt 80.5 kg
[2020-06-03 08:52] VITALS: BP 136/80
[2020-06-03 09:38] LABS: BASOPHILS # (AUTO) 0.2 X10'3 (0-0.2); BASOPHILS % (AUTO) 1.2 % (0-1); EOSINOPHILS % (AUTO) 0.1 % (0-6); HEMATOCRIT 47.2 % (35.0-45.0); HEMOGLOBIN 15.8 g/dl (12.0-16.0); LYMPHOCYTES # (AUTO) 3.3 X10'3 (1.1-4.8); LYMPHOCYTES % (AUTO) 16.6 % (21-51); MEAN CORPUSCULAR HEMOGLOBIN 29.8 PG (27.0-31.0); MEAN CORPUSCULAR HGB CONC 33.5 g/dL (33.0-36.5); MEAN CORPUSCULAR VOLUME 88.8 FL (78-98); MEAN PLATELET VOLUME 9.1 FL (7.4-10.4); MONOCYTES # (AUTO) 1.3 X10'3 (0-0.9); MONOCYTES % (AUTO) 6.3 % (2-12); NEUTROPHILS # (AUTO) 15.1 X10'3 (1.8-7.7); NEUTROPHILS % (AUTO) 75.8 % (42-75); PLATELET COUNT 314 X10'3 (140-440); RED BLOOD COUNT 5.31 X10'6 (4.20-5.60); RED CELL DISTRIBUTION WIDTH 14.9 % (11.5-14.5); WHITE BLOOD COUNT 19.9 X10'3 (4.5-11.0)
[2020-06-03 09:55] LABS: ALANINE AMINOTRANSFERASE 48 U/L (12-78); ALBUMIN 4.6 G/DL (3.4-5.0); ALKALINE PHOSPHATASE 132 IU/L (46-116); ANION GAP 12 (8-16); ASPARTATE AMINO TRANSFERASE 25 U/L (10-37); BILIRUBIN,TOTAL 0.6 MG/DL (0.1-1.0); BLOOD UREA NITROGEN 23 MG/DL (7-18); BUN/CREATININE RATIO 29.5 (6.6-38.0); CALCIUM 9.8 MG/DL (8.5-10.1); CHLORIDE 103 MMOL/L (99-107); CREATININE 0.78 MG/DL (0.40-0.90); GLUCOSE 167 MG/DL (70-104); LIPASE 63 U/L (73-393); POTASSIUM 3.7 MMOL/L (3.5-5.1); SODIUM 140 MMOL/L (135-145); TOTAL PROTEIN 9.3 G/DL (6.4-8.2); eGFR 79 ML/MIN
[2020-06-03] MEDS ORDERED: fentaNYL/PF 50MCG/1 ML 2ML syringe IV ONE (10:20)
[2020-06-03] MEDS ORDERED: ondansetron/PF 4mg/2ml inj IV ONE (10:20)
[2020-06-03] MEDS ORDERED: normal saline 1000ML IV soln IV ONE (10:20)
[2020-06-03 10:29] LABS: HCG SERUM QL NEGATIVE
--- NOTE | 2020-06-03 12:29 | NUR ---
Patient was called to come back to a room for the third time and she was not in lobby. BRYCE wong aware. Will call patient at listed number.
--- NOTE | 2020-06-03 12:32 | NUR ---
Called patient and left voicemail. Will discharge patient from tracker.
== END 2020-06-03 12:34 | disposition left against medical advice (07) ==
LOC: ER 08:40
DX: D72.829 Elevated white blood cell count, unspecified (principal); R10.9 Unspecified abdominal pain; I10 Essential (primary) hypertension; J44.9 Chronic obstructive pulmonary disease, unspecified; G89.29 Other chronic pain; M54.9 Dorsalgia, unspecified; F32.9 Major depressive disorder, single episode, unspecified; K21.9 Gastro-esophageal reflux disease without esophagitis; K27.9 Peptic ulcer, site unspecified, unspecified as acute or chronic, without hemorrhage or perforation; K92.2 Gastrointestinal hemorrhage, unspecified; Z90.49 Acquired absence of other specified parts of digestive tract; Z98.890 Other specified postprocedural states; Z88.5 Allergy status to narcotic agent; Z88.1 Allergy status to other antibiotic agents; Z88.8 Allergy status to other drugs, medicaments and biological substances; Z79.899 Other long term (current) drug therapy
CPT/HCPCS: 36415; 80053; 83690; 84145; 84703; 85025; 99283

== ENCOUNTER 2020-06-24 21:26 | Emergency (ER) | payer MEDICARE, MEDICAID ==
[~2020-06-24] VITALS: Ht 154.9 cm; Wt 86.8 kg
[2020-06-24 22:11] LABS: CLARITY,URINE CLEAR (Clear); COLOR,URINE YELLOW (Yellow); GLUCOSE, URINE NEGATIVE (Neg); KETONES,URINE NEGATIVE (Neg); LEUKOCYTE ESTERASE ,URINE NEGATIVE (Neg); NITRITES, URINE NEGATIVE (Neg); OCCULT BLOOD,URINE NEGATIVE (Neg); PROTEIN,URINE NEGATIVE (Neg)
[2020-06-24 22:14] LABS: UA COLLECTION TYPE CLN CATCH MIDSTREAM
[2020-06-24 22:25] LABS: BASOPHILS # (AUTO) 0.1 X10'3 (0-0.2); BASOPHILS % (AUTO) 0.9 % (0-1); EOSINOPHILS # (AUTO) 0.3 X10'3 (0-0.9); EOSINOPHILS % (AUTO) 2.3 % (0-6); HEMATOCRIT 40.9 % (35.0-45.0); HEMOGLOBIN 13.7 g/dl (12.0-16.0); LYMPHOCYTES # (AUTO) 5.5 X10'3 (1.1-4.8); LYMPHOCYTES % (AUTO) 38.1 % (21-51); MEAN CORPUSCULAR HGB CONC 33.4 g/dL (33.0-36.5); MEAN CORPUSCULAR VOLUME 89.7 FL (78-98); MEAN PLATELET VOLUME 8.7 FL (7.4-10.4); MONOCYTES % (AUTO) 7.1 % (2-12); NEUTROPHILS # (AUTO) 7.4 X10'3 (1.8-7.7); NEUTROPHILS % (AUTO) 51.6 % (42-75); PLATELET COUNT 279 X10'3 (140-440); RED BLOOD COUNT 4.56 X10'6 (4.20-5.60); WHITE BLOOD COUNT 14.4 X10'3 (4.5-11.0)
[2020-06-24 22:34] LABS: ALANINE AMINOTRANSFERASE 73 U/L (12-78); ALBUMIN 3.4 G/DL (3.4-5.0); ALBUMIN/GLOBULIN RATIO 0.9 (1.1-1.5); ALKALINE PHOSPHATASE 146 IU/L (46-116); ANION GAP 11 (8-16); ASPARTATE AMINO TRANSFERASE 22 U/L (10-37); BILIRUBIN,TOTAL 0.2 MG/DL (0.1-1.0); BLOOD UREA NITROGEN 14 MG/DL (7-18); BUN/CREATININE RATIO 15.4 (6.6-38.0); CALCIUM 8.6 MG/DL (8.5-10.1); CHLORIDE 108 MMOL/L (99-107); CREATININE 0.91 MG/DL (0.40-0.90); GLUCOSE 134 MG/DL (70-104); LIPASE 83 U/L (73-393); POTASSIUM 3.5 MMOL/L (3.5-5.1); SODIUM 144 MMOL/L (135-145); TOTAL CARBON DIOXIDE 25.5 MMOL/L (24-32); TOTAL PROTEIN 7.3 G/DL (6.4-8.2); eGFR 66 ML/MIN
[2020-06-24] MEDS ORDERED: normal saline 1000ML IV soln IVB ONE (22:50)
[2020-06-24] MEDS ORDERED: haloperidol lactate 5mg/ml inj IM ONE (22:50)
[2020-06-24] MEDS ORDERED: LORazepam 2 mg/ml vial IV ONE (22:50)
[2020-06-24] MEDS ORDERED: ondansetron/PF 4mg/2ml inj IV ONE (22:50)
[2020-06-24 23:52] VITALS: BP 133/94
== END 2020-06-24 23:54 | disposition home or self-care (01) ==
LOC: ER 21:26
DX: R11.10 Vomiting, unspecified (principal); R10.84 Generalized abdominal pain; E86.0 Dehydration; I10 Essential (primary) hypertension; J44.9 Chronic obstructive pulmonary disease, unspecified; K21.9 Gastro-esophageal reflux disease without esophagitis; G89.29 Other chronic pain; F32.9 Major depressive disorder, single episode, unspecified; Z87.11 Personal history of peptic ulcer disease; Z90.89 Acquired absence of other organs; Z90.49 Acquired absence of other specified parts of digestive tract; Z90.710 Acquired absence of both cervix and uterus; Z98.890 Other specified postprocedural states; Z88.5 Allergy status to narcotic agent; Z88.1 Allergy status to other antibiotic agents; Z88.8 Allergy status to other drugs, medicaments and biological substances; Z79.899 Other long term (current) drug therapy
CPT/HCPCS: 36415; 80053; 81003; 83690; 85025; 96361; 96372; 96374; 96375; 99284; J1630; J2060; J2405; J7030

== ENCOUNTER 2020-10-11 18:02 | Emergency (ER) | payer MEDICARE, MEDICAID ==
[~2020-10-11] VITALS: Ht 154.9 cm; Wt 72.7 kg
[2020-10-11 18:44] VITALS: BP 166/95
[2020-10-11 19:14] LABS: CLARITY,URINE CLEAR (Clear); COLOR,URINE YELLOW (Yellow); GLUCOSE, URINE NEGATIVE (Neg); KETONES,URINE NEGATIVE (Neg); LEUKOCYTE ESTERASE ,URINE NEGATIVE (Neg); NITRITES, URINE NEGATIVE (Neg); OCCULT BLOOD,URINE NEGATIVE (Neg); PROTEIN,URINE NEGATIVE (Neg)
[2020-10-11 19:15] LABS: URINE HCG NEGATIVE (NEG)
[2020-10-11 19:17] LABS: UA COLLECTION TYPE CLN CATCH MIDSTREAM
[2020-10-11 19:39] LABS: BASOPHILS # (AUTO) 0.1 X10'3 (0-0.2); BASOPHILS % (AUTO) 0.9 % (0-1); EOSINOPHILS # (AUTO) 0.2 X10'3 (0-0.9); EOSINOPHILS % (AUTO) 1.7 % (0-6); HEMATOCRIT 45.3 % (35.0-45.0); HEMOGLOBIN 15.1 g/dl (12.0-16.0); LYMPHOCYTES # (AUTO) 3.5 X10'3 (1.1-4.8); LYMPHOCYTES % (AUTO) 24.4 % (21-51); MEAN CORPUSCULAR HEMOGLOBIN 30.3 PG (27.0-31.0); MEAN CORPUSCULAR HGB CONC 33.2 g/dL (33.0-36.5); MEAN PLATELET VOLUME 9.1 FL (7.4-10.4); MONOCYTES % (AUTO) 6.9 % (2-12); NEUTROPHILS # (AUTO) 9.4 X10'3 (1.8-7.7); NEUTROPHILS % (AUTO) 66.1 % (42-75); PLATELET COUNT 243 X10'3 (140-440); RED BLOOD COUNT 4.98 X10'6 (4.20-5.60); RED CELL DISTRIBUTION WIDTH 13.9 % (11.5-14.5); WHITE BLOOD COUNT 14.2 X10'3 (4.5-11.0)
[2020-10-11 20:05] LABS: ALANINE AMINOTRANSFERASE 44 U/L (12-78); ALBUMIN 3.8 G/DL (3.4-5.0); ALBUMIN/GLOBULIN RATIO 0.9 (1.1-1.5); ALKALINE PHOSPHATASE 142 IU/L (46-116); ANION GAP 14 (8-16); ASPARTATE AMINO TRANSFERASE 30 U/L (10-37); BILIRUBIN,TOTAL 0.2 MG/DL (0.1-1.0); BLOOD UREA NITROGEN 14 MG/DL (7-18); BUN/CREATININE RATIO 20.9 (6.6-38.0); CALCIUM 9.1 MG/DL (8.5-10.1); CHLORIDE 102 MMOL/L (99-107); CREATININE 0.67 MG/DL (0.40-0.90); GLUCOSE 144 MG/DL (70-104); LIPASE 58 U/L (73-393); POTASSIUM 4.1 MMOL/L (3.5-5.1); SODIUM 139 MMOL/L (135-145); TOTAL CARBON DIOXIDE 22.7 MMOL/L (24-32); TOTAL PROTEIN 8.1 G/DL (6.4-8.2); eGFR > 90 ML/MIN
[2020-10-11] MEDS ORDERED: CIPR-202 PO (20:19)
== END 2020-10-11 20:28 | disposition home or self-care (01) ==
LOC: ER 18:03
DX: N39.0 Urinary tract infection, site not specified (principal); R10.84 Generalized abdominal pain; R11.0 Nausea; I10 Essential (primary) hypertension; J44.9 Chronic obstructive pulmonary disease, unspecified; K21.9 Gastro-esophageal reflux disease without esophagitis; G89.29 Other chronic pain; F32.9 Major depressive disorder, single episode, unspecified; Z87.11 Personal history of peptic ulcer disease; Z90.89 Acquired absence of other organs; Z90.49 Acquired absence of other specified parts of digestive tract; Z90.710 Acquired absence of both cervix and uterus; Z98.890 Other specified postprocedural states; Z88.5 Allergy status to narcotic agent; Z88.8 Allergy status to other drugs, medicaments and biological substances; Z88.1 Allergy status to other antibiotic agents; Z79.2 Long term (current) use of antibiotics; Z79.899 Other long term (current) drug therapy
CPT/HCPCS: 36415; 80053; 81003; 81025; 83690; 85025; 99283

== ENCOUNTER 2020-10-27 18:51 | Emergency (ER) | payer MEDICARE, MEDICAID ==
[~2020-10-27] VITALS: Ht 154.9 cm; Wt 88.8 kg
[2020-10-27 19:36] LABS: URINE HCG NEGATIVE (NEG)
[2020-10-27 19:41] LABS: CLARITY,URINE CLEAR (Clear); COLOR,URINE YELLOW (Yellow); GLUCOSE, URINE NEGATIVE (Neg); KETONES,URINE NEGATIVE (Neg); LEUKOCYTE ESTERASE ,URINE NEGATIVE (Neg); NITRITES, URINE NEGATIVE (Neg); OCCULT BLOOD,URINE NEGATIVE (Neg); PROTEIN,URINE NEGATIVE (Neg); UROBILINOGEN,URINE 0.2 E.U/dL (0.2-1.0)
[2020-10-27 19:53] LABS: UA COLLECTION TYPE CLN CATCH MIDSTREAM
[2020-10-27] MEDS ORDERED: ondansetron 4mg rapidly disintigrating tab PO ONE (20:05)
[2020-10-27 20:21] VITALS: BP 136/94
== END 2020-10-27 20:22 | disposition home or self-care (01) ==
LOC: ER 18:52
DX: R30.0 Dysuria (principal); M54.5 Low back pain; I10 Essential (primary) hypertension; J44.9 Chronic obstructive pulmonary disease, unspecified; K21.9 Gastro-esophageal reflux disease without esophagitis; G89.29 Other chronic pain; F32.9 Major depressive disorder, single episode, unspecified; Z87.11 Personal history of peptic ulcer disease; Z87.440 Personal history of urinary (tract) infections; Z90.89 Acquired absence of other organs; Z90.49 Acquired absence of other specified parts of digestive tract; Z90.710 Acquired absence of both cervix and uterus; Z98.890 Other specified postprocedural states; Z88.5 Allergy status to narcotic agent; Z88.8 Allergy status to other drugs, medicaments and biological substances; Z79.899 Other long term (current) drug therapy
CPT/HCPCS: 81003; 81025; 99283

== ENCOUNTER 2021-06-22 04:15 | Emergency (ER) | payer MEDICARE, MEDICAID ==
[~2021-06-22] VITALS: Ht 154.9 cm; Wt 81.0 kg
[~2021-06-22 04:15] MED LIST changes: -OMEP40CA13 PO; +OMEP40CA21 PO
[2021-06-22] MEDS ORDERED: morphine 4 MG/ML inj SYRINge IV ONE (04:55)
[2021-06-22] MEDS ORDERED: ondansetron/PF 4mg/2ml inj IV ONE ×2 (04:55→06:30)
[2021-06-22] MEDS ORDERED: normal saline 1000ml 1,000 ML IV ONE (04:55)
[2021-06-22 05:09] LABS: BASOPHILS # (AUTO) 0.1 X10'3 (0-0.2); BASOPHILS % (AUTO) 0.8 % (0-1); EOSINOPHILS # (AUTO) 0.3 X10'3 (0-0.9); EOSINOPHILS % (AUTO) 1.8 % (0-6); HEMATOCRIT 42.2 % (35.0-45.0); HEMOGLOBIN 14.2 g/dl (12.0-16.0); LYMPHOCYTES # (AUTO) 5.6 X10'3 (1.1-4.8); LYMPHOCYTES % (AUTO) 38.5 % (21-51); MEAN CORPUSCULAR HEMOGLOBIN 29.3 PG (27.0-31.0); MEAN CORPUSCULAR HGB CONC 33.7 g/dL (33.0-36.5); MEAN CORPUSCULAR VOLUME 87.1 FL (78-98); MEAN PLATELET VOLUME 9.1 FL (7.4-10.4); MONOCYTES # (AUTO) 1.2 X10'3 (0-0.9); MONOCYTES % (AUTO) 7.9 % (2-12); NEUTROPHILS # (AUTO) 7.5 X10'3 (1.8-7.7); PLATELET COUNT 303 X10'3 (140-440); RED BLOOD COUNT 4.85 X10'6 (4.20-5.60); RED CELL DISTRIBUTION WIDTH 13.9 % (11.5-14.5); WHITE BLOOD COUNT 14.6 X10'3 (4.5-11.0)
[2021-06-22 05:15] LABS: ALANINE AMINOTRANSFERASE 52 U/L (12-78); ALBUMIN 3.7 G/DL (3.4-5.0); ALBUMIN/GLOBULIN RATIO 0.9 (1.1-1.5); ALKALINE PHOSPHATASE 128 IU/L (46-116); ANION GAP 12 (8-16); ASPARTATE AMINO TRANSFERASE 18 U/L (10-37); BILIRUBIN,DIRECT 0.1 MG/DL (0-0.3); BILIRUBIN,TOTAL 0.4 MG/DL (0.1-1.0); BLOOD UREA NITROGEN 15 MG/DL (7-18); BUN/CREATININE RATIO 15.6 (6.6-38.0); CHLORIDE 102 MMOL/L (99-107); CREATININE 0.96 MG/DL (0.40-0.90); GLUCOSE 259 MG/DL (70-104); LIPASE 72 U/L (73-393); POTASSIUM 3.9 MMOL/L (3.5-5.1); SODIUM 138 MMOL/L (135-145); TOTAL CARBON DIOXIDE 24.3 MMOL/L (24-32); TOTAL PROTEIN 7.8 G/DL (6.4-8.2); eGFR 62 ML/MIN
[2021-06-22 05:30] LABS: CALCIUM 8.5 MG/DL (8.5-10.1)
[2021-06-22] MEDS ORDERED: HYDROmorphone 1 mg/ml syringe IV ONE (05:55)
[2021-06-22] MEDS ORDERED: ketorolac trometh. 30mg/ml inj. IV ONE (06:30)
[2021-06-22] MEDS ORDERED: insulin regular, human 10 units/0.1 ml syringe IV ONE (06:30)
[2021-06-22] MEDS ORDERED: proMETHazine 25mg tablet PO ONE (06:30)
[2021-06-22] MEDS ORDERED: dicyclomine 10mg/ml 2ml ampule IM ONE (06:30)
[2021-06-22 07:31] VITALS: BP 138/80
[2021-06-22 08:09] LABS: CLARITY,URINE CLEAR (Clear); COLOR,URINE YELLOW (Yellow); GLUCOSE, URINE 100 mg/dl (Neg); KETONES,URINE NEGATIVE (Neg); LEUKOCYTE ESTERASE ,URINE NEGATIVE (Neg); NITRITES, URINE NEGATIVE (Neg); OCCULT BLOOD,URINE NEGATIVE (Neg); PH,URINE 5.5 (4.8-8.0); PROTEIN,URINE NEGATIVE (Neg); UROBILINOGEN,URINE 0.2 E.U/dL (0.2-1.0)
[2021-06-22 08:20] LABS: UA COLLECTION TYPE CLN CATCH MIDSTREAM
[2021-06-22 09:04] LABS: URINE AMPHETAMINE SCREEN NEGATIVE (Neg); URINE BARBITUATE SCREEN NEGATIVE (Neg); URINE BENZODIAZEPINES SCREEN NEGATIVE (Neg); URINE CANNABINOID SCREEN NEGATIVE (Neg); URINE COCAINE SCREEN NEGATIVE (Neg); URINE METHADONE SCREEN POSITIVE (Neg); URINE OPIATE SCREEN POSITIVE (Neg); URINE PHENCYCLIDINE SCREEN NEGATIVE (Neg)
== END 2021-06-22 08:28 | disposition left against medical advice (07) ==
LOC: ER 04:16
DX: K31.84 Gastroparesis (principal); R10.84 Generalized abdominal pain; E11.9 Type 2 diabetes mellitus without complications; G89.29 Other chronic pain; I10 Essential (primary) hypertension; J44.9 Chronic obstructive pulmonary disease, unspecified; K21.9 Gastro-esophageal reflux disease without esophagitis; F32.9 Major depressive disorder, single episode, unspecified; Z87.11 Personal history of peptic ulcer disease; Z87.440 Personal history of urinary (tract) infections; Z90.89 Acquired absence of other organs; Z90.49 Acquired absence of other specified parts of digestive tract; Z90.710 Acquired absence of both cervix and uterus; Z98.890 Other specified postprocedural states; Z88.5 Allergy status to narcotic agent; Z88.8 Allergy status to other drugs, medicaments and biological substances; Z88.1 Allergy status to other antibiotic agents; Z79.899 Other long term (current) drug therapy
CPT/HCPCS: 36415; 74176; 80053; 80305; 81003; 82248; 82948; 83036; 83690; 84145; 85025; 96361; 96372; 96374; 96375; 96376; 99284; J0500; J1170; J1815; J1885; J2405; J7030

== ENCOUNTER 2022-01-15 09:48 | Emergency (ER) | payer MEDICARE, MEDICAID ==
[~2022-01-15] VITALS: Ht 154.9 cm; Wt 81.8 kg
[2022-01-15] MEDS ORDERED: ketorolac tromethamine 15mg/ml inj. IV ONE (11:25)
[2022-01-15] MEDS ORDERED: meperidine/PF 50mg/ml syringe IV ONE ×2 (11:25→13:15)
[2022-01-15] MEDS ORDERED: ondansetron/PF 4mg/2ml inj IV ONE ×2 (11:25→13:50)
[2022-01-15] MEDS ORDERED: magnesium 2GM in 50ml NS 50 ML IV ONE (11:25)
[2022-01-15] MEDS ORDERED: normal saline 1000ML IV soln IVB ONE (11:25)
[2022-01-15 12:12] LABS: BASOPHILS # (AUTO) 0.1 X10'3 (0-0.2); BASOPHILS % (AUTO) 0.7 % (0-1); EOSINOPHILS # (AUTO) 0.1 X10'3 (0-0.9); EOSINOPHILS % (AUTO) 1.2 % (0-6); HEMATOCRIT 39.7 % (35.0-45.0); HEMOGLOBIN 13.2 g/dl (12.0-16.0); LYMPHOCYTES # (AUTO) 3.3 X10'3 (1.1-4.8); LYMPHOCYTES % (AUTO) 34.8 % (21-51); MEAN CORPUSCULAR HEMOGLOBIN 28.2 PG (27.0-31.0); MEAN CORPUSCULAR HGB CONC 33.4 g/dL (33.0-36.5); MEAN CORPUSCULAR VOLUME 84.6 FL (78-98); MEAN PLATELET VOLUME 8.9 FL (7.4-10.4); MONOCYTES # (AUTO) 0.7 X10'3 (0-0.9); NEUTROPHILS # (AUTO) 5.3 X10'3 (1.8-7.7); NEUTROPHILS % (AUTO) 56.3 % (42-75); PLATELET COUNT 285 X10'3 (140-440); RED BLOOD COUNT 4.69 X10'6 (4.20-5.60); RED CELL DISTRIBUTION WIDTH 13.2 % (11.5-14.5); WHITE BLOOD COUNT 9.4 X10'3 (4.5-11.0)
[2022-01-15 12:28] LABS: ALANINE AMINOTRANSFERASE 45 U/L (12-78); ALBUMIN 3.5 G/DL (3.4-5.0); ALBUMIN/GLOBULIN RATIO 0.9 (1.1-1.5); ALKALINE PHOSPHATASE 132 IU/L (46-116); ANION GAP 8 (8-16); ASPARTATE AMINO TRANSFERASE 21 U/L (10-37); BILIRUBIN,TOTAL 0.2 MG/DL (0.1-1.0); BLOOD UREA NITROGEN 9 MG/DL (7-18); BUN/CREATININE RATIO 11.7 (6.6-38.0); CALCIUM 8.8 MG/DL (8.5-10.1); CHLORIDE 105 MMOL/L (99-107); CREATININE 0.77 MG/DL (0.40-0.90); GLUCOSE 207 MG/DL (70-104); LIPASE 57 U/L (73-393); POTASSIUM 3.6 MMOL/L (3.5-5.1); SODIUM 142 MMOL/L (135-145); TOTAL CARBON DIOXIDE 28.8 MMOL/L (24-32); TOTAL PROTEIN 7.6 G/DL (6.4-8.2); eGFR 80 ML/MIN
[2022-01-15 14:12] VITALS: BP 150/84
== END 2022-01-15 14:18 | disposition home or self-care (01) ==
LOC: ER 09:48
DX: K31.84 Gastroparesis (principal); R10.84 Generalized abdominal pain; R11.2 Nausea with vomiting, unspecified; I10 Essential (primary) hypertension; J44.9 Chronic obstructive pulmonary disease, unspecified; K21.9 Gastro-esophageal reflux disease without esophagitis; G89.29 Other chronic pain; F32.A Depression, unspecified; Z87.11 Personal history of peptic ulcer disease; Z87.440 Personal history of urinary (tract) infections; Z90.89 Acquired absence of other organs; Z90.49 Acquired absence of other specified parts of digestive tract; Z90.710 Acquired absence of both cervix and uterus; Z98.890 Other specified postprocedural states; Z88.8 Allergy status to other drugs, medicaments and biological substances; Z88.5 Allergy status to narcotic agent; Z88.1 Allergy status to other antibiotic agents; Z79.899 Other long term (current) drug therapy
CPT/HCPCS: 36415; 80053; 83690; 83735; 85025; 96361; 96365; 96375; 96376; 99284; J1885; J2175; J2405; J3475; J7030

== ENCOUNTER 2022-03-07 19:11 | Emergency (ER) | payer MEDICARE, MEDICAID ==
[~2022-03-07] VITALS: Ht 154.9 cm; Wt 85.4 kg
[2022-03-07] MEDS ORDERED: normal saline 1000ML IV soln IVB ONE (19:25)
[2022-03-07] MEDS ORDERED: ondansetron/PF 4mg/2ml inj IV ONE (19:45)
[2022-03-07 19:48] LABS: URINE HCG NEGATIVE (NEG)
[2022-03-07 19:50] LABS: BASOPHILS % (AUTO) 0.2 % (0-1); LYMPHOCYTES # (AUTO) 3.8 X10'3 (1.1-4.8); WHITE BLOOD COUNT 12.6 X10'3 (4.5-11.0)
[2022-03-07 19:50] LABS: CLARITY,URINE CLEAR (Clear); COLOR,URINE YELLOW (Yellow); GLUCOSE, URINE NEGATIVE (Neg); KETONES,URINE NEGATIVE (Neg); LEUKOCYTE ESTERASE ,URINE NEGATIVE (Neg); NITRITES, URINE NEGATIVE (Neg); OCCULT BLOOD,URINE NEGATIVE (Neg); PROTEIN,URINE NEGATIVE (Neg); UROBILINOGEN,URINE 0.2 E.U/dL (0.2-1.0)
[2022-03-07 19:51] LABS: EOSINOPHILS # (AUTO) 0.2 X10'3 (0-0.9); EOSINOPHILS % (AUTO) 1.6 % (0-6); HEMATOCRIT 45.5 % (35.0-45.0); HEMOGLOBIN 15.1 g/dl (12.0-16.0); LYMPHOCYTES % (AUTO) 30.1 % (21-51); MEAN CORPUSCULAR HEMOGLOBIN 28.7 PG (27.0-31.0); MEAN CORPUSCULAR HGB CONC 33.1 g/dL (33.0-36.5); MEAN CORPUSCULAR VOLUME 86.6 FL (78-98); MEAN PLATELET VOLUME 8.5 FL (7.4-10.4); MONOCYTES % (AUTO) 8.1 % (2-12); NEUTROPHILS # (AUTO) 7.6 X10'3 (1.8-7.7); PLATELET COUNT 304 X10'3 (140-440); RED BLOOD COUNT 5.26 X10'6 (4.20-5.60); RED CELL DISTRIBUTION WIDTH 13.9 % (11.5-14.5)
[2022-03-07 19:56] LABS: UA COLLECTION TYPE CLN CATCH MIDSTREAM
[2022-03-07 20:02] LABS: ALANINE AMINOTRANSFERASE 45 U/L (12-78); ALBUMIN 4.2 G/DL (3.4-5.0); ALBUMIN/GLOBULIN RATIO 0.9 (1.1-1.5); ALKALINE PHOSPHATASE 142 IU/L (46-116); ANION GAP 10 (8-16); ASPARTATE AMINO TRANSFERASE 16 U/L (10-37); BILIRUBIN,TOTAL 0.4 MG/DL (0.1-1.0); BLOOD UREA NITROGEN 14 MG/DL (7-18); BUN/CREATININE RATIO 16.9 (6.6-38.0); CALCIUM 9.3 MG/DL (8.5-10.1); CHLORIDE 102 MMOL/L (99-107); CREATININE 0.83 MG/DL (0.40-0.90); GLUCOSE 99 MG/DL (70-104); LIPASE < 50 U/L (73-393); MAGNESIUM 1.5 MG/DL (1.5-2.4); POTASSIUM 3.8 MMOL/L (3.5-5.1); SODIUM 138 MMOL/L (135-145); TOTAL CARBON DIOXIDE 25.6 MMOL/L (24-32); eGFR 73 ML/MIN
[2022-03-07 20:07] VITALS: BP 106/73
[2022-03-07] MEDS ORDERED: [UNRECOGNIZED DRUG - CODE] PO (20:24)
== END 2022-03-07 21:09 | disposition home or self-care (01) ==
LOC: ER 19:12
DX: R19.7 Diarrhea, unspecified (principal); R11.2 Nausea with vomiting, unspecified; R10.84 Generalized abdominal pain; I10 Essential (primary) hypertension; J44.9 Chronic obstructive pulmonary disease, unspecified; K21.9 Gastro-esophageal reflux disease without esophagitis; G89.29 Other chronic pain; F32.A Depression, unspecified; Z87.11 Personal history of peptic ulcer disease; Z87.440 Personal history of urinary (tract) infections; Z90.89 Acquired absence of other organs; Z90.49 Acquired absence of other specified parts of digestive tract; Z90.710 Acquired absence of both cervix and uterus; Z98.890 Other specified postprocedural states; Z88.5 Allergy status to narcotic agent; Z88.1 Allergy status to other antibiotic agents; Z88.8 Allergy status to other drugs, medicaments and biological substances; Z79.899 Other long term (current) drug therapy
CPT/HCPCS: 36415; 80053; 81003; 81025; 83605; 83690; 83735; 85025; 96361; 96374; 99283; J2405; J7030

== ENCOUNTER 2022-04-11 03:08 | Emergency (ER) | payer MEDICARE, MEDICAID ==
[~2022-04-11] VITALS: Ht 154.9 cm; Wt 86.2 kg
[~2022-04-11 03:08] MED LIST changes: +[UNRECOGNIZED DRUG - CODE] PO
--- NOTE | 2022-04-11 03:43 | NUR ---
unable to obtain labs, iv started rt basiliac will attempt to draw blood after hydration, per provider normal saline bolus to start hydrating
[2022-04-11] MEDS ORDERED: normal saline 1000ml 1,000 ML IV ONE ×2 (03:45→04:20)
[2022-04-11 04:01] VITALS: BP 150/99
[2022-04-11] MEDS ORDERED: ondansetron/PF 4mg/2ml inj IV ONE (04:15)
[2022-04-11] MEDS ORDERED: proMETHazine 25mg rectal suppository RC ONE (04:20)
[2022-04-11] MEDS ORDERED: dicyclomine 10mg/ml 2ml ampule IM ONE (04:20)
[2022-04-11] MEDS ORDERED: ketorolac trometh. 30mg/ml inj. IV ONE (04:20)
[2022-04-11 04:45] LABS: URINE HCG NEGATIVE (NEG)
[2022-04-11 04:46] LABS: CLARITY,URINE CLEAR (Clear); COLOR,URINE STRAW (Yellow); GLUCOSE, URINE NEGATIVE (Neg); KETONES,URINE NEGATIVE (Neg); LEUKOCYTE ESTERASE ,URINE NEGATIVE (Neg); NITRITES, URINE NEGATIVE (Neg); OCCULT BLOOD,URINE NEGATIVE (Neg); PROTEIN,URINE NEGATIVE (Neg); UA COLLECTION TYPE CLN CATCH MIDSTREAM; UROBILINOGEN,URINE 0.2 E.U/dL (0.2-1.0)
[2022-04-11 04:47] LABS: BASOPHILS % (AUTO) 0.5 % (0-1); EOSINOPHILS # (AUTO) 0.2 X10'3 (0-0.9); EOSINOPHILS % (AUTO) 2.1 % (0-6); HEMATOCRIT 38.1 % (35.0-45.0); LYMPHOCYTES # (AUTO) 2.8 X10'3 (1.1-4.8); MEAN CORPUSCULAR HEMOGLOBIN 29.5 PG (27.0-31.0); MEAN CORPUSCULAR HGB CONC 34.2 g/dL (33.0-36.5); MEAN CORPUSCULAR VOLUME 86.1 FL (78-98); MEAN PLATELET VOLUME 8.3 FL (7.4-10.4); MONOCYTES # (AUTO) 0.8 X10'3 (0-0.9); MONOCYTES % (AUTO) 7.9 % (2-12); NEUTROPHILS # (AUTO) 6.1 X10'3 (1.8-7.7); NEUTROPHILS % (AUTO) 61.5 % (42-75); PLATELET COUNT 291 X10'3 (140-440); RED BLOOD COUNT 4.43 X10'6 (4.20-5.60); RED CELL DISTRIBUTION WIDTH 13.8 % (11.5-14.5); WHITE BLOOD COUNT 9.9 X10'3 (4.5-11.0)
[2022-04-11 04:59] LABS: ALANINE AMINOTRANSFERASE 28 U/L (12-78); ALBUMIN 3.5 G/DL (3.4-5.0); ALBUMIN/GLOBULIN RATIO 0.9 (1.1-1.5); ALKALINE PHOSPHATASE 109 IU/L (46-116); ANION GAP 12 (8-16); ASPARTATE AMINO TRANSFERASE 16 U/L (10-37); BILIRUBIN,TOTAL 0.2 MG/DL (0.1-1.0); BLOOD UREA NITROGEN 12 MG/DL (7-18); BUN/CREATININE RATIO 16.2 (6.6-38.0); CALCIUM 8.4 MG/DL (8.5-10.1); CHLORIDE 105 MMOL/L (99-107); CREATININE 0.74 MG/DL (0.40-0.90); GLUCOSE 112 MG/DL (70-104); LIPASE 81 U/L (73-393); POTASSIUM 3.9 MMOL/L (3.5-5.1); SODIUM 142 MMOL/L (135-145); TOTAL CARBON DIOXIDE 25.5 MMOL/L (24-32); TOTAL PROTEIN 7.3 G/DL (6.4-8.2); eGFR 83 ML/MIN
--- NOTE | 2022-04-11 05:01 | NUR ---
pt states has relaxed feeling after recieving medications will continue to monitor
[2022-04-11] MEDS ORDERED: fentaNYL/PF 50MCG/1 ML 2ML syringe IV ONE (05:10)
[2022-04-11] MEDS ORDERED: LORazepam 2 mg/ml vial IV ONE (05:10)
== END 2022-04-11 05:51 | disposition home or self-care (01) ==
LOC: ER 03:08
DX: K31.84 Gastroparesis (principal); I10 Essential (primary) hypertension; J44.9 Chronic obstructive pulmonary disease, unspecified; K21.9 Gastro-esophageal reflux disease without esophagitis; G89.29 Other chronic pain; M54.9 Dorsalgia, unspecified; F32.A Depression, unspecified; Z90.49 Acquired absence of other specified parts of digestive tract; Z88.5 Allergy status to narcotic agent; Z79.899 Other long term (current) drug therapy; Z88.8 Allergy status to other drugs, medicaments and biological substances; Z88.1 Allergy status to other antibiotic agents
CPT/HCPCS: 36415; 80053; 81003; 81025; 83690; 85025; 96361; 96372; 96374; 96375; 99284; J0500; J1885; J2060; J2405; J3010; J7030

== ENCOUNTER 2022-04-11 16:18 | Emergency (ER) | payer MEDICARE, MEDICAID ==
[~2022-04-11] VITALS: Ht 154.9 cm; Wt 86.4 kg
[2022-04-11 16:29] VITALS: BP 166/93
[2022-04-11 16:51] LABS: CLARITY,URINE CLEAR (Clear); GLUCOSE, URINE NEGATIVE (Neg); KETONES,URINE NEGATIVE (Neg); LEUKOCYTE ESTERASE ,URINE NEGATIVE (Neg); NITRITES, URINE NEGATIVE (Neg); OCCULT BLOOD,URINE NEGATIVE (Neg); PROTEIN,URINE NEGATIVE (Neg); UROBILINOGEN,URINE 0.2 E.U/dL (0.2-1.0)
[2022-04-11 16:52] LABS: URINE HCG NEGATIVE (NEG)
[2022-04-11 17:03] LABS: COLOR,URINE STRAW (Yellow); UA COLLECTION TYPE CLN CATCH MIDSTREAM
[2022-04-11 17:57] LABS: BASOPHILS # (AUTO) 0.1 X10'3 (0-0.2); BASOPHILS % (AUTO) 0.7 % (0-1); EOSINOPHILS # (AUTO) 0.1 X10'3 (0-0.9); EOSINOPHILS % (AUTO) 1.5 % (0-6); HEMATOCRIT 40.2 % (35.0-45.0); HEMOGLOBIN 13.2 g/dl (12.0-16.0); LYMPHOCYTES # (AUTO) 3.1 X10'3 (1.1-4.8); LYMPHOCYTES % (AUTO) 30.6 % (21-51); MEAN CORPUSCULAR HEMOGLOBIN 28.7 PG (27.0-31.0); MEAN CORPUSCULAR HGB CONC 32.8 g/dL (33.0-36.5); MEAN CORPUSCULAR VOLUME 87.6 FL (78-98); MEAN PLATELET VOLUME 8.1 FL (7.4-10.4); MONOCYTES # (AUTO) 0.6 X10'3 (0-0.9); MONOCYTES % (AUTO) 6.1 % (2-12); NEUTROPHILS # (AUTO) 6.2 X10'3 (1.8-7.7); NEUTROPHILS % (AUTO) 61.1 % (42-75); PLATELET COUNT 275 X10'3 (140-440); RED BLOOD COUNT 4.59 X10'6 (4.20-5.60); RED CELL DISTRIBUTION WIDTH 14.1 % (11.5-14.5); WHITE BLOOD COUNT 10.1 X10'3 (4.5-11.0)
[2022-04-11 18:31] LABS: ALANINE AMINOTRANSFERASE 32 U/L (12-78); ALBUMIN 3.6 G/DL (3.4-5.0); ALBUMIN/GLOBULIN RATIO 0.9 (1.1-1.5); ALKALINE PHOSPHATASE 100 IU/L (46-116); ANION GAP 12 (8-16); ASPARTATE AMINO TRANSFERASE 17 U/L (10-37); BILIRUBIN,TOTAL 0.2 MG/DL (0.1-1.0); BLOOD UREA NITROGEN 11 MG/DL (7-18); BUN/CREATININE RATIO 14.5 (6.6-38.0); CALCIUM 8.7 MG/DL (8.5-10.1); CHLORIDE 106 MMOL/L (99-107); CREATININE 0.76 MG/DL (0.40-0.90); GLUCOSE 87 MG/DL (70-104); LIPASE 68 U/L (73-393); POTASSIUM 3.7 MMOL/L (3.5-5.1); SODIUM 142 MMOL/L (135-145); TOTAL CARBON DIOXIDE 23.8 MMOL/L (24-32); TOTAL PROTEIN 7.4 G/DL (6.4-8.2); eGFR 81 ML/MIN
== END 2022-04-12 00:55 | disposition left against medical advice (07) ==
LOC: ER 16:18
DX: R10.9 Unspecified abdominal pain (principal); R11.2 Nausea with vomiting, unspecified; Z53.21 Procedure and treatment not carried out due to patient leaving prior to being seen by health care provider
CPT/HCPCS: 36415; 80053; 81003; 81025; 83690; 85025

== ENCOUNTER 2023-01-04 19:12 | Emergency (ER) | payer MEDICAID, MEDICARE ==
[~2023-01-04] VITALS: Ht 154.9 cm; Wt 71.6 kg
[2023-01-04 19:49] VITALS: BP 120/85
[2023-01-04] MEDS ORDERED: dexamethasone sod phosphate 10mg/ml inj PO STA (20:38)
[2023-01-04] MEDS ORDERED: amox tr/potassium clavulanate 875/125mg TAB PO ONE (20:40)
[2023-01-04] MEDS ORDERED: AMOX-117 PO (20:58)
== END 2023-01-04 21:12 | disposition home or self-care (01) ==
LOC: ER 19:13
DX: R59.1 Generalized enlarged lymph nodes (principal); I10 Essential (primary) hypertension; J44.9 Chronic obstructive pulmonary disease, unspecified; K21.9 Gastro-esophageal reflux disease without esophagitis; G89.29 Other chronic pain; F32.9 Major depressive disorder, single episode, unspecified; Z90.49 Acquired absence of other specified parts of digestive tract; Z90.710 Acquired absence of both cervix and uterus; Z98.890 Other specified postprocedural states; Z88.8 Allergy status to other drugs, medicaments and biological substances; Z88.5 Allergy status to narcotic agent; Z79.899 Other long term (current) drug therapy
CPT/HCPCS: 99283; J1100

== ENCOUNTER 2023-01-31 16:20 | Emergency (ER) | payer MEDICARE, MEDICAID ==
[~2023-01-31] VITALS: Ht 172.7 cm; Wt 80.0 kg
[2023-01-31 16:24] VITALS: BP 121/66
[2023-01-31] MEDS ORDERED: KETO15CR2 TP (17:09)
== END 2023-01-31 17:27 | disposition home or self-care (01) ==
LOC: ER 16:21
DX: L21.8 Other seborrheic dermatitis (principal); J44.9 Chronic obstructive pulmonary disease, unspecified; I10 Essential (primary) hypertension; K21.9 Gastro-esophageal reflux disease without esophagitis; G89.29 Other chronic pain; M54.9 Dorsalgia, unspecified; F17.200 Nicotine dependence, unspecified, uncomplicated; F32.A Depression, unspecified; Z90.49 Acquired absence of other specified parts of digestive tract; Z88.8 Allergy status to other drugs, medicaments and biological substances; Z79.899 Other long term (current) drug therapy; Z88.5 Allergy status to narcotic agent
CPT/HCPCS: 99283

== ENCOUNTER 2023-07-11 20:26 | Emergency (ER) | payer MEDICARE, MEDICAID ==
[~2023-07-11] VITALS: Ht 154.9 cm; Wt 73.7 kg
[~2023-07-11 20:26] MED LIST changes: +KETO15CR2 TP
[2023-07-11 20:33] VITALS: TEMP 98.5
[2023-07-11 21:12] LABS: BASOPHILS # (AUTO) 0.1 X10'3 (0-0.2); BASOPHILS % (AUTO) 0.6 % (0-1); EOSINOPHILS # (AUTO) 0.2 X10'3 (0-0.9); EOSINOPHILS % (AUTO) 1.6 % (0-6); HEMATOCRIT 40.5 % (35.0-45.0); HEMOGLOBIN 13.6 g/dl (12.0-16.0); LYMPHOCYTES # (AUTO) 4.7 X10'3 (1.1-4.8); LYMPHOCYTES % (AUTO) 46.2 % (21-51); MEAN CORPUSCULAR HGB CONC 33.7 g/dL (33.0-36.5); MEAN CORPUSCULAR VOLUME 89.1 FL (78-98); MEAN PLATELET VOLUME 8.1 FL (7.4-10.4); MONOCYTES # (AUTO) 0.8 X10'3 (0-0.9); NEUTROPHILS # (AUTO) 4.5 X10'3 (1.8-7.7); NEUTROPHILS % (AUTO) 43.6 % (42-75); PLATELET COUNT 254 X10'3 (140-440); RED BLOOD COUNT 4.54 X10'6 (4.20-5.60); WHITE BLOOD COUNT 10.2 X10'3 (4.5-11.0)
[2023-07-11 21:26] LABS: ALANINE AMINOTRANSFERASE 43 U/L (12-78); ALBUMIN 3.9 G/DL (3.4-5.0); ALBUMIN/GLOBULIN RATIO 0.9 (1.1-1.5); ALKALINE PHOSPHATASE 94 IU/L (46-116); ANION GAP 7 (8-16); BILIRUBIN,TOTAL 0.4 MG/DL (0.1-1.0); BLOOD UREA NITROGEN 23 MG/DL (7-18); BUN/CREATININE RATIO 38.3 (10.0-20.0); CALCIUM 9.3 MG/DL (8.5-10.1); CHLORIDE 102 MMOL/L (99-107); GLUCOSE 100 MG/DL (70-104); SODIUM 135 MMOL/L (135-145); TOTAL PROTEIN 8.1 G/DL (6.4-8.2); eCRCL 85 ML/MIN; eGFR > 90 ML/MIN
[2023-07-11 21:28] LABS: ASPARTATE AMINO TRANSFERASE 37 U/L (10-37); LIPASE 31 U/L (16-77); POTASSIUM 5.2 MMOL/L (3.5-5.1)
[2023-07-11 21:30] LABS: BILIRUBIN,URINE NEGATIVE (Neg); CLARITY,URINE SLIGHTLY CLOUDY (Clear); COLOR,URINE YELLOW (Yellow); GLUCOSE, URINE NEGATIVE (Neg); KETONES,URINE NEGATIVE (Neg); LEUKOCYTE ESTERASE ,URINE MODERATE (Neg); NITRITES, URINE NEGATIVE (Neg); OCCULT BLOOD,URINE NEGATIVE (Neg); PH,URINE 6.5 (4.8-8.0); PROTEIN,URINE NEGATIVE (Neg)
[2023-07-11 21:32] LABS: UA COLLECTION TYPE CLN CATCH MIDSTREAM; URINE HCG NEGATIVE (NEG)
[2023-07-11 21:42] LABS: BACTERIA,URINE 1+ /HPF (Neg); MUCUS STRANDS FEW /LPF (Neg); RBC,URINE 0-2 /HPF (0-2); SQUAMOUS EPITHELIAL CELL,UR MANY /LPF (FEW); TRANSITIONAL EPI CELLS,URINE FEW /HPF
[2023-07-12] MEDS ORDERED: dicyclomine 10 MG capsule PO ONE (02:50)
[2023-07-12] MEDS ORDERED: ketorolac trometh. 30mg/ml inj. IV ONE (02:50)
[2023-07-12] MEDS ORDERED: normal saline 1000ML IV soln IVB ONE (02:50)
[2023-07-12] MEDS ORDERED: ondansetron/PF 4mg/2ml inj IV ONE (02:50)
[2023-07-12] MEDS ORDERED: LORazepam 2 mg/ml vial IV ONE (02:55)
[2023-07-12] MEDS ORDERED: morphine 4 MG/ML inj SYRINge IV ONE (02:55)
[2023-07-12 04:26] VITALS: BP 120/69; PULSE 56; O2SAT 98
[2023-07-12 04:43] VITALS: RESP 16
== END 2023-07-12 04:43 | disposition home or self-care (01) ==
LOC: ER 20:27
DX: E11.43 Type 2 diabetes mellitus with diabetic autonomic (poly)neuropathy (principal); K31.84 Gastroparesis; I10 Essential (primary) hypertension; J44.9 Chronic obstructive pulmonary disease, unspecified; G89.29 Other chronic pain; Z90.49 Acquired absence of other specified parts of digestive tract; Z90.710 Acquired absence of both cervix and uterus; Z79.899 Other long term (current) drug therapy; Z88.8 Allergy status to other drugs, medicaments and biological substances; Z88.5 Allergy status to narcotic agent
CPT/HCPCS: 36415; 80053; 81001; 81025; 83690; 85025; 96361; 96374; 96375; 99285; J1885; J2060; J2270; J2405; J7030

== ENCOUNTER 2023-07-19 13:37 | Emergency (ER) | payer MEDICARE, MEDICAID ==
[~2023-07-19] VITALS: Ht 154.9 cm; Wt 72.4 kg
[2023-07-19 13:42] VITALS: TEMP 98.1
[2023-07-19] MEDS ORDERED: ondansetron 4mg rapidly disintigrating tab PO ONE (13:50)
[2023-07-19 14:19] LABS: BASOPHILS % (AUTO) 0.4 % (0-1); EOSINOPHILS # (AUTO) 0.2 X10'3 (0-0.9); EOSINOPHILS % (AUTO) 1.9 % (0-6); HEMATOCRIT 41.1 % (35.0-45.0); LYMPHOCYTES # (AUTO) 3.8 X10'3 (1.1-4.8); LYMPHOCYTES % (AUTO) 35.7 % (21-51); MEAN CORPUSCULAR HEMOGLOBIN 30.2 PG (27.0-31.0); MEAN CORPUSCULAR HGB CONC 34.1 g/dL (33.0-36.5); MEAN CORPUSCULAR VOLUME 88.6 FL (78-98); MEAN PLATELET VOLUME 8.1 FL (7.4-10.4); MONOCYTES # (AUTO) 0.9 X10'3 (0-0.9); MONOCYTES % (AUTO) 8.1 % (2-12); NEUTROPHILS # (AUTO) 5.7 X10'3 (1.8-7.7); NEUTROPHILS % (AUTO) 53.9 % (42-75); PLATELET COUNT 291 X10'3 (140-440); RED BLOOD COUNT 4.65 X10'6 (4.20-5.60); WHITE BLOOD COUNT 10.6 X10'3 (4.5-11.0)
[2023-07-19 14:23] LABS: BILIRUBIN,URINE NEGATIVE (Neg); CLARITY,URINE SLIGHTLY CLOUDY (Clear); COLOR,URINE YELLOW (Yellow); GLUCOSE, URINE NEGATIVE (Neg); KETONES,URINE NEGATIVE (Neg); LEUKOCYTE ESTERASE ,URINE NEGATIVE (Neg); NITRITES, URINE NEGATIVE (Neg); OCCULT BLOOD,URINE NEGATIVE (Neg); PH,URINE 6.5 (4.8-8.0); PROTEIN,URINE NEGATIVE (Neg); UA COLLECTION TYPE CLN CATCH MIDSTREAM
[2023-07-19 14:26] LABS: URINE HCG NEGATIVE (NEG)
[2023-07-19 14:30] LABS: ALANINE AMINOTRANSFERASE 46 U/L (12-78); ALBUMIN 3.9 G/DL (3.4-5.0); ALBUMIN/GLOBULIN RATIO 0.9 (1.1-1.5); ALKALINE PHOSPHATASE 100 IU/L (46-116); ANION GAP 10 (8-16); ASPARTATE AMINO TRANSFERASE 20 U/L (10-37); BILIRUBIN,TOTAL 0.3 MG/DL (0.1-1.0); BLOOD UREA NITROGEN 21 MG/DL (7-18); CALCIUM 9.3 MG/DL (8.5-10.1); CHLORIDE 102 MMOL/L (99-107); CREATININE 0.75 MG/DL (0.40-0.90); GLUCOSE 127 MG/DL (70-104); LIPASE 34 U/L (16-77); POTASSIUM 3.9 MMOL/L (3.5-5.1); SODIUM 138 MMOL/L (135-145); TOTAL CARBON DIOXIDE 25.6 MMOL/L (24-32); TOTAL PROTEIN 8.2 G/DL (6.4-8.2); eCRCL 68 ML/MIN; eGFR 82 ML/MIN
[2023-07-19 14:49] LABS: SQUAMOUS EPITHELIAL CELL,UR FEW /LPF (FEW); TRANSITIONAL EPI CELLS,URINE FEW /HPF
[2023-07-19 14:50] LABS: BACTERIA,URINE FEW /HPF (Neg); RBC,URINE 0-2 /HPF (0-2); WBC,URINE 0-4 /HPF (0-4)
[2023-07-19 15:33] VITALS: BP 108/79; PULSE 85; RESP 16; O2SAT 97
== END 2023-07-19 18:04 | disposition left against medical advice (07) ==
LOC: ER 13:38
DX: R10.9 Unspecified abdominal pain (principal); Z53.21 Procedure and treatment not carried out due to patient leaving prior to being seen by health care provider
CPT/HCPCS: 36415; 80053; 81001; 81025; 82948; 83690; 85025; 99281

== ENCOUNTER 2023-09-09 09:38 | Emergency (ER) | payer MEDICARE, MEDICAID ==
[~2023-09-09] VITALS: Ht 154.9 cm; Wt 77.0 kg
[2023-09-09 09:44] VITALS: TEMP 98
[2023-09-09] MEDS: haloperidol lactate 5mg/ml inj IM ONE (10:02)
[2023-09-09] MEDS: meperidine/PF 50mg/ml syringe IV ONE ×2 (10:02→14:07)
[2023-09-09] MEDS: normal saline 1000ml 1,000 ML IV ONE (10:03)
[2023-09-09] MEDS: normal saline 1000ML IV soln IVB ONE (10:03)
[2023-09-09] MEDS: ondansetron/PF 4mg/2ml inj IV ONE (10:03)
[2023-09-09] MEDS: ketorolac tromethamine 15mg/ml inj. IV ONE (10:03)
[2023-09-09 10:57] LABS: ALANINE AMINOTRANSFERASE 55 U/L (12-78); ALBUMIN 4.1 G/DL (3.4-5.0); ALKALINE PHOSPHATASE 106 IU/L (46-116); ANION GAP 11 (8-16); ASPARTATE AMINO TRANSFERASE 32 U/L (10-37); BILIRUBIN,TOTAL 0.2 MG/DL (0.1-1.0); BLOOD UREA NITROGEN 30 MG/DL (7-18); BUN/CREATININE RATIO 49.2 (10.0-20.0); CALCIUM 8.5 MG/DL (8.5-10.1); CHLORIDE 105 MMOL/L (99-107); CREATININE 0.61 MG/DL (0.40-0.90); GLUCOSE 140 MG/DL (70-104); SODIUM 144 MMOL/L (135-145); TOTAL CARBON DIOXIDE 28.3 MMOL/L (24-32); TOTAL PROTEIN 8.1 G/DL (6.4-8.2); eCRCL 83 ML/MIN; eGFR > 90 ML/MIN
[2023-09-09 10:58] LABS: LIPASE 32 U/L (16-77); MAGNESIUM 2.4 MG/DL (1.5-2.4)
[2023-09-09 11:01] LABS: BILIRUBIN,DIRECT 0.1 MG/DL (0-0.3); POTASSIUM 4.3 MMOL/L (3.5-5.1)
[2023-09-09 11:02] LABS: ETHANOL < 10 MG/DL (<10)
[2023-09-09 11:47] LABS: BASOPHILS % (AUTO) 0.2 % (0-1); EOSINOPHILS # (AUTO) 0.1 X10'3 (0-0.9); EOSINOPHILS % (AUTO) 0.3 % (0-6); HEMATOCRIT 43.2 % (35.0-45.0); LYMPHOCYTES # (AUTO) 1.1 X10'3 (1.1-4.8); LYMPHOCYTES % (AUTO) 6.7 % (21-51); MEAN CORPUSCULAR HEMOGLOBIN 28.9 PG (27.0-31.0); MEAN CORPUSCULAR HGB CONC 32.5 g/dL (33.0-36.5); MEAN PLATELET VOLUME 8.7 FL (7.4-10.4); MONOCYTES # (AUTO) 0.8 X10'3 (0-0.9); MONOCYTES % (AUTO) 4.9 % (2-12); NEUTROPHILS # (AUTO) 14.6 X10'3 (1.8-7.7); NEUTROPHILS % (AUTO) 87.9 % (42-75); PLATELET COUNT 294 X10'3 (140-440); RED BLOOD COUNT 4.85 X10'6 (4.20-5.60); RED CELL DISTRIBUTION WIDTH 13.1 % (11.5-14.5); WHITE BLOOD COUNT 16.6 X10'3 (4.5-11.0)
[2023-09-09 11:52] LABS: URINE AMPHETAMINE SCREEN NEGATIVE (Neg); URINE BARBITUATE SCREEN NEGATIVE (Neg); URINE BENZODIAZEPINES SCREEN NEGATIVE (Neg); URINE CANNABINOID SCREEN POSITIVE (Neg); URINE COCAINE SCREEN NEGATIVE (Neg); URINE METHADONE SCREEN NEGATIVE (Neg); URINE OPIATE SCREEN NEGATIVE (Neg); URINE PHENCYCLIDINE SCREEN NEGATIVE (Neg)
[2023-09-09 11:59] VITALS: BP 157/85; PULSE 70; O2SAT 95
[2023-09-09 14:07] VITALS: RESP 18
[2023-09-09] MEDS: LORazepam 2 mg/ml vial IV ONE (14:07)
== END 2023-09-09 15:20 | disposition home or self-care (01) ==
LOC: ER 09:38
DX: R11.15 Cyclical vomiting syndrome unrelated to migraine (principal); E86.0 Dehydration; J45.909 Unspecified asthma, uncomplicated; J44.9 Chronic obstructive pulmonary disease, unspecified; I10 Essential (primary) hypertension; G89.29 Other chronic pain; M54.9 Dorsalgia, unspecified; E11.9 Type 2 diabetes mellitus without complications; Z90.49 Acquired absence of other specified parts of digestive tract; Z79.899 Other long term (current) drug therapy; Z88.8 Allergy status to other drugs, medicaments and biological substances; Z88.5 Allergy status to narcotic agent
CPT/HCPCS: 36415; 80048; 80076; 80305; 80320; 83690; 83735; 85025; 96361; 96372; 96374; 96375; 99284; J1630; J1885; J2060; J2175; J2405; J7030

== ENCOUNTER 2023-09-16 10:21 | Emergency (ER) | payer MEDICARE, MEDICAID ==
[~2023-09-16] VITALS: Ht 154.9 cm; Wt 75.0 kg
[2023-09-16 10:32] VITALS: BP 117/90; PULSE 60; RESP 20; TEMP 97.8; O2SAT 94
== END 2023-09-16 11:54 | disposition left against medical advice (07) ==
LOC: ER 10:21
DX: R10.9 Unspecified abdominal pain (principal); R11.10 Vomiting, unspecified; Z53.21 Procedure and treatment not carried out due to patient leaving prior to being seen by health care provider
CPT/HCPCS: 99281

== ENCOUNTER 2025-02-04 16:24 | Emergency (ER) | payer MEDICARE, MEDICAID ==
[~2025-02-04] VITALS: Ht 154.9 cm; Wt 72.0 kg
[~2025-02-04 16:24] MED LIST changes: +ONDA-243 PO; -ONDA4TAB12 PO
[2025-02-04 16:31] VITALS: TEMP 98.1
--- NOTE | 2025-02-04 17:04 | Physician Documentation ---
History of Present Illness ~ Chief Complaint: Abdominal Pain Stated Complaint: NAUSEA AND VOMITING Time Seen by MD: 16:40 Primary Medical Doctor: Dr. Chris Epperson HPI 49 year old female with history of DM and gastroparesis reports recurrence of chronic abdominal cramping, nausea, and vomiting. She receives botox injections at [facility] every 4 months to control her symptoms and her last shot was about 4 months ago. She denies fevers, N/V/D, urinary symptoms. Medication Reconciliation Allergies: Coded Allergies: diphenhydramine (Verified Allergy, Intermediate, 02/04/25) prochlorperazine edisylate (Verified Allergy, Intermediate, SWELLING, 02/04/25) metoclopramide HCl (Verified Allergy, Unknown, 02/04/25) prochlorperazine maleate (Verified Allergy, Unknown, 02/04/25) vancomycin (Verified Adverse Reaction, Mild, HISTORY OF RED MAN SYNDROME, 02/04/25) Scheduled Ketoconazole (Ketoconazole), 1 APPLIC TP DAILY Methadone Hcl (Dolophine), 1 TAB PO DAILY, (Reported) ONDANSETRON ODT 4mg tablet (Ondansetron Odt), 8 MG PO Q6H, (Reported) Omeprazole (Prilosec), 1 CAP PO DAILY, (Reported) Ondansetron Hcl (Zofran), 1 TAB PO Q6H Scheduled PRN Bismuth Subsalicylate (Kaopectate), 2 TAB PO Q12H PRN for diarrhea Ondansetron Hcl (Zofran), 1 TAB PO Q6H PRN for nausea/vomiting Ondansetron Hcl (Zofran), 1 TAB PO Q6H PRN for nausea/vomiting Past Medical History Past Medical History: Hypertension, Asthma, COPD, *GI/HEPATOBILIARY*, GERD, GI Bleed, Peptic Ulcer Disease, UTI, Diabetes, Chronic Pain, Chronic Back Pain, Depression Past Surgical History: abdominal surgery, appendectomy, cholecystectomy, hysterectomy, orthopedic surgeries, other Other Past Surgical History: gastric stimulator, gastrostomy tube Other Past Family History: NONCONTRIBUTORY Alcohol Use: None Drug Use: none Lives with: Spouse Lives In: Home Occupation: student Review of Systems All Other Systems at this time: Reviewed and Negative Physical Exam Vital Signs: RN Vital Signs have been reviewed: Yes, Temperature: 98.1, Source: Oral, Heart Rate: 91, Respiratory Rate: 16, BP: 113/63, Pulse Oximetry: 96, Weight: 72.000 Oxygen Flow Rate: 0 Physical Exam HEENT: PERRL, moist oral mucosa, EOMI Pulmonary: No respiratory distress GI: nondistended, soft, nontender, no guarding, no rebound MSK: no deformity Skin: w/d/i, no rash Neuro: alert, nonfocal Psych: normal affect Progress Results/Orders Results/Orders Completed Orders - KAL PLATA MD Ketorolac Trometh 15mg/Ml Vial (Toradol (02/04/25 19:05) Lorazepam Inj (Ativan Inj) (02/04/25 19:05) Medications Received in ER Medications (Trade) Dose Ordered Sig/Yadira Route PRN Reason Start Time Stop Time Status Last Admin Dose Admin (Dilaudid inj.) 1 mg ONCE ONCE IV 02/04/25 18:05 02/04/25 18:07 DC 02/04/25 18:19 1 MG (Toradol injection) 15 mg ONCE ONCE IV 02/04/25 19:05 02/04/25 19:11 DC 02/04/25 19:57 15 MG Vital Signs 02/04/25 02/04/25 02/04/25 02/04/25 16:31 18:08 18:19 18:41 Temp 98.1 Pulse 91 70 Resp 16 16 16 15 B/P (MAP) 113/63 105/55 (72) Pulse Ox 96 98 O2 Flow Rate 0 0 02/04/25 19:57 Resp 16 Laboratory Tests Test 02/04/25 16:57 02/04/25 18:00 White Blood Count 9.2 Red Blood Count 4.88 Hemoglobin 14.3 Hematocrit 41.4 Mean Corpuscular Volume 85.0 Mean Corpuscular Hemoglobin 29.4 Mean Corpuscular Hemoglobin Concent 34.5 Red Cell Distribution Width 13.1 Platelet Count 326 Mean Platelet Volume 8.3 Neutrophils (%) (Auto) 75.2 H Lymphocytes (%) (Auto) 17.5 L Monocytes (%) (Auto) 7.0 Eosinophils (%) (Auto) 0.1 Basophils (%) (Auto) 0.2 Neutrophils # (Auto) 6.9 Lymphocytes # (Auto) 1.6 Monocytes # (Auto) 0.6 Eosinophils # (Auto) 0.0 Basophils # (Auto) 0.0 CBC Comment Sodium Level 138 Potassium Level 3.5 Chloride Level 102 Carbon Dioxide Level 27.3 Anion Gap 9 Blood Urea Nitrogen 24 H Creatinine 0.58 Estimated GFR/1.73 m2 > 90 BUN/Creatinine Ratio 41.4 H Glucose Level 129 H Calcium Level 9.4 Total Bilirubin 0.4 Aspartate Amino Transf (AST/SGOT) 16 Alanine Aminotransferase (ALT/SGPT) 45 Alkaline Phosphatase 103 Total Protein 8.1 Albumin 4.0 Globulin 4.1 Albumin/Globulin Ratio 1.0 L Lipase 13 L Chemistry Comments Urine Specimen Description Cln catch midstream Urine Color Yellow Urine Clarity Clear Urine pH 6.0 Urine Specific [place] 1.020 Urine Protein Trace Urine Glucose (UA) Negative Urine Ketones 40 H Urine Occult Blood Negative Urine Nitrite Negative Urine Bilirubin Small Urine Urobilinogen 0.2 Urine Leukocyte Esterase Negative Urine RBC 3-10 Urine WBC 0-4 Urine Squamous Epithelial Cells Few Urine Bacteria 1+ Urine Mucus Moderate Urine Culture Indicated Not ind Volume Urine Centrifuged 10 ml Urine HCG, Qualitative Negative Urine Comment Medical Decision Making Findings 49 year old female with recurrence of chronic gastroparesis symptoms. IVF and meds, workup pending, will sign out to oncoming ER physician for reeval and disposition. Dr. Plata: Assumed care of patient. Reviewed case and saw patient. She is feeling much better and feels she is able to go home. Additional Comments Ddx = electrolyte abnormality, gastroparesis, gastroenteritis, UTI Departure Disposition: 01 HOME / SELF CARE / HOMELESS Impression: Primary Impression: Gastroparesis Condition: Stable Discharge Instructions: Abdominal Pain (Nonspecific) Referrals: NO PRIMARY CARE PROVIDER (PCP) Education Educated: Patient Educated regarding: diagnosis, treatment, prognosis, need for follow up Signature Scribe Signature: . Attestation: The note accurately reflects work and decisions made by me.Kal Plata MD 02/04/25 19:57 . JAIDA ESCUDERO MD Feb 04, 2025 17:04 KAL PLATA MD Feb 04, 2025 19:57
[2025-02-04 17:23] LABS: MEAN PLATELET VOLUME 8.3 FL (7.4-10.4); RED CELL DISTRIBUTION WIDTH 13.1 % (11.5-14.5)
[2025-02-04] MEDS: haloperidol lactate 5mg/ml inj IM ONE (17:33)
[2025-02-04] MEDS: normal saline 1000ml 1,000 ML IV ONE (17:33)
[2025-02-04] MEDS: ondansetron/PF 4mg/2ml inj IV ONE (17:34)
[2025-02-04 17:40] LABS: CREATININE 0.58 MG/DL (0.40-0.90); TOTAL CARBON DIOXIDE 27.3 MMOL/L (24-32); eCRCL 87 ML/MIN; eGFR > 90 ML/MIN
[2025-02-04 18:41] VITALS: BP 105/55; PULSE 70; O2SAT 98
[2025-02-04 18:47] LABS: URINE HCG NEGATIVE (NEG)
[2025-02-04 18:50] LABS: LEUKOCYTE ESTERASE ,URINE NEGATIVE (Neg); NITRITES, URINE NEGATIVE (Neg); OCCULT BLOOD,URINE NEGATIVE (Neg)
[2025-02-04 18:52] LABS: UA COLLECTION TYPE CLN CATCH MIDSTREAM
[2025-02-04 18:54] LABS: MUCUS STRANDS MODERATE /LPF (Neg); SQUAMOUS EPITHELIAL CELL,UR FEW /LPF (FEW)
[2025-02-04 19:57] VITALS: RESP 16
[2025-02-04] MEDS: ketorolac trometh 15mg/ml vial 15 MG/ML ML IV ONE (19:57)
== END 2025-02-04 20:18 | disposition home or self-care (01) ==
LOC: ER 16:24
DX: K21.9 Gastro-esophageal reflux disease without esophagitis (principal); K31.84 Gastroparesis; J44.9 Chronic obstructive pulmonary disease, unspecified; I10 Essential (primary) hypertension; E11.43 Type 2 diabetes mellitus with diabetic autonomic (poly)neuropathy; Z88.1 Allergy status to other antibiotic agents; Z88.8 Allergy status to other drugs, medicaments and biological substances; Z90.49 Acquired absence of other specified parts of digestive tract; Z90.710 Acquired absence of both cervix and uterus; Z79.899 Other long term (current) drug therapy
CPT/HCPCS: 36415; 80053; 81001; 81025; 83690; 85025; 96361; 96372; 96374; 96375; 99284; J1171; J1630; J1885; J2405; J7030

== ENCOUNTER 2025-06-08 15:50 | Emergency (ER) | payer MEDICARE, MEDICAID ==
[~2025-06-08] VITALS: Ht 157.5 cm; Wt 70.0 kg
--- NOTE | 2025-06-08 16:03 | Physician Documentation ---
History of Present Illness General Chief Complaint: Abdominal Pain Stated Complaint: ABD PAIN Time Seen by MD: 16:01 Primary Medical Doctor: Dr. Chris Epperson History of Present Illness Initial Comments 50-year-old female who has a history of cyclic vomiting presents to the emergency room with two days of nausea and vomiting and epigastric abdominal pain. Patient states she has been unable to take her methadone today due to the vomiting. Patient states her pain is moderate to severe and similar to her cyclic vomiting pain in the past. Patient denies any diarrhea. The patient denies any fevers or chills. Medication Reconciliation Allergies: Coded Allergies: diphenhydramine (Verified Allergy, Intermediate, 06/08/25) prochlorperazine edisylate (Verified Allergy, Intermediate, SWELLING, 06/08/25) metoclopramide HCl (Verified Allergy, Unknown, 06/08/25) prochlorperazine maleate (Verified Allergy, Unknown, 06/08/25) vancomycin (Verified Adverse Reaction, Mild, HISTORY OF RED MAN SYNDROME, 06/08/25) Scheduled Cefpodoxime Proxetil (Vantin), 1 TAB PO Q12H Ketoconazole (Ketoconazole), 1 APPLIC TP DAILY Methadone Hcl (Dolophine), 1 TAB PO DAILY, (Reported) ONDANSETRON ODT 4mg tablet (Ondansetron Odt), 8 MG PO Q6H, (Reported) Omeprazole (Prilosec), 1 CAP PO DAILY, (Reported) Ondansetron Hcl (Zofran), 1 TAB PO Q6H Scheduled PRN Bismuth Subsalicylate (Kaopectate), 2 TAB PO Q12H PRN for diarrhea Ondansetron Hcl (Zofran), 1 TAB PO Q6H PRN for nausea/vomiting Ondansetron Hcl (Zofran), 1 TAB PO Q6H PRN for nausea/vomiting Past Medical History Past Medical History: Hypertension, Asthma, COPD, *GI/HEPATOBILIARY*, GERD, GI Bleed, Peptic Ulcer Disease, UTI, Diabetes, Chronic Pain, Chronic Back Pain, Depression Past Surgical History: abdominal surgery, appendectomy, cholecystectomy, hysterectomy, orthopedic surgeries, other Other Past Surgical History: gastric stimulator, gastrostomy tube Other Past Family History: NONCONTRIBUTORY Smoking: Cigarettes Alcohol Use: None Drug Use: none Lives with: Spouse Lives In: Home Occupation: student Review of Systems All Other Systems at this time: Reviewed and Negative Physical Exam Physical Exam Vital Signs: Temperature: 98.5, Source: Temporal, Heart Rate: 98, Respiratory Rate: 18, BP: 151/95, Pulse Oximetry: 99, Weight: 70.000 Oxygen Flow Rate: 0 Physical Exam VITALS: Reviewed and as above. GENERAL: Alert, mild distress secondary to pain HEENT: Normocephalic, atraumatic, PERRL, EOMI, dry mucosa, no erythema RESPIRATORY: Lungs clear, normal breath sounds, mild distress secondary to pain CHEST: No accessory muscle use, no retractions CV: Regular rate, rhythm, no edema, no murmur, No: JVD GI: Epigastric abdominal tenderness, bowels sounds present, no rebound, guarding, or rigidity BACK: No CVA tenderness, or swelling MUSCULOSKELETAL: No deformities, no edema SKIN: Warm and dry, no rash NEURO: Oriented x4, No motor or sensory deficit PSYCH: Normal mood and affect, no agitation Progress Results/Orders Results/Orders Orders - OHLIZZY ECHEVARRIA MD Cult Urine + [place] [address] (06/08/25 16:33) Completed Orders - IZZY MANZANO MD Hcg, Ur Ql (06/08/25 16:02) Cbc/Diff (06/08/25 16:02) BMP (06/08/25 16:02) Lipase (06/08/25 16:02) CMP (06/08/25 16:02) Normal Saline 1000ml (0.9% Sodium Chlori (06/08/25 16:05) Haloperidol Lact. (Haldol) (06/08/25 16:05) Hydromorphone 1 Mg/Ml/Pf (Dilaudid Inj.) (06/08/25 16:25) Ua W/Microscopic, Cult If Ind (06/08/25 16:05) Ondansetron Inj. (Zofran 4mg/2ml Vial) (06/08/25 16:31) Ceftriaxone 2gm/D5w 50ml Bag (Rocephin 2 (06/08/25 17:30) Vital Signs 06/08/25 06/08/25 06/08/25 06/08/25 15:58 16:05 16:13 16:37 Temp 98.5 98.3 Pulse 98 92 Resp 18 20 20 B/P (MAP) 151/95 139/99 (112) Pulse Ox 99 96 O2 Flow Rate 0 0 06/08/25 06/08/25 06/08/25 17:38 17:40 18:34 Temp 98.3 97.8 Pulse 98 94 Resp 20 16 20 B/P (MAP) 129/67 (87) 134/73 Pulse Ox 88 99 O2 Flow Rate 0 Laboratory Tests Test 06/08/25 16:05 06/08/25 16:15 06/08/25 16:23 Urine Specimen Description Cln catch midstream Urine Color Yellow Urine Clarity Slightly cloudy Urine pH 6.0 Urine Specific [place] >=1.030 Urine Protein 30 H Urine Glucose (UA) Negative Urine Ketones >=80 Urine Occult Blood Trace-intact Urine Nitrite Negative Urine Bilirubin Moderate Urine Urobilinogen 0.2 Urine Leukocyte Esterase Negative Urine RBC 0-2 Urine WBC 5-10 H Urine Squamous Epithelial Cells Few Urine Bacteria 1+ Urine Culture Indicated Indicated Volume Urine Centrifuged 6 ml Urine HCG, Qualitative Negative Urine Comment Low volume Sodium Level 136 Potassium Level 5.9 H Chloride Level 103 Carbon Dioxide Level 21.7 L Anion Gap 11 Blood Urea Nitrogen 22 H Creatinine 0.64 Estimated GFR/1.73 m2 > 90 BUN/Creatinine Ratio 34.4 H Glucose Level 159 H Calcium Level 9.2 Total Bilirubin 0.5 Aspartate Amino Transf (AST/SGOT) 29 Alanine Aminotransferase (ALT/SGPT) 31 Alkaline Phosphatase 108 Total Protein 8.9 H Albumin 4.5 Globulin 4.4 H Albumin/Globulin Ratio 1.0 L Lipase 17 Chemistry Comments White Blood Count 20.6 H Red Blood Count 5.16 Hemoglobin 14.8 Hematocrit 44.8 Mean Corpuscular Volume 86.8 Mean Corpuscular Hemoglobin 28.7 Mean Corpuscular Hemoglobin Concent 33.0 Red Cell Distribution Width 13.6 Platelet Count 411 Mean Platelet Volume 8.7 Neutrophils (%) (Auto) 90.6 H Lymphocytes (%) (Auto) 6.1 L Monocytes (%) (Auto) 2.9 Eosinophils (%) (Auto) 0.3 Basophils (%) (Auto) 0.1 Neutrophils # (Auto) 18.6 H Lymphocytes # (Auto) 1.3 Monocytes # (Auto) 0.6 Eosinophils # (Auto) 0.1 Basophils # (Auto) 0.0 CBC Comment Microbiology Date/Time Source Procedure Growth Status 06/08/25 16:33 Urine Clean Catch Midstream Urine Culture - Preliminary NO GROWTH AFTER 1 DAY Resulted Medical Decision Making Additional information obtaine: old records Findings The patient with a history of cyclic vomiting on methadone states she has been able to take her methadone she was given IV fluids here and Haldol and 2 mg of Dilaudid with almost complete resolution of her pain the patient also had likely has a urinary tract infection she will be treated here with a dose of ceftriaxone and then she will be placed on Vantin. Previous hospitalizations has been reviewed. The patient's pulse oximetry has been interpreted as normal and adequate, and the patient's traffic monitor specialist was interpreted as a sinus rhythm Differential Diagnosis Gastroparesis gastritis peptic ulcer disease biliary disease infectious processes sepsis. Departure Impression: Primary Impression: Cyclical vomiting Additional Impression: Acute urinary tract infection Discharge Instructions: Urinary Tract Infection, Adult, [id number] Referrals: NO PRIMARY CARE PROVIDER (PCP) Prescriptions Cefpodoxime Proxetil (Vantin) 200 Mg Tablet 1 TAB PO Q12H for 7 Days, #14 TAB Prov: IZZY MANZANO MD 06/08/25 Signature Scribe Signature: No scribe Attestation: The note accurately reflects work and decisions made by me.Izzy Manzano MD 06/09/25 12:57 IZZY MANZANO MD Jun 08, 2025 16:03
[2025-06-08 16:20] LABS: URINE HCG NEGATIVE (NEG)
[2025-06-08 16:22] LABS: LEUKOCYTE ESTERASE ,URINE NEGATIVE (Neg); NITRITES, URINE NEGATIVE (Neg); OCCULT BLOOD,URINE TRACE-INTACT (Neg)
[2025-06-08 16:26] LABS: UA COLLECTION TYPE CLN CATCH MIDSTREAM
[2025-06-08] MEDS: normal saline 1000ML IV soln IVB ONE (16:28)
[2025-06-08] MEDS: haloperidol lactate 5mg/ml inj IM ONE (16:30)
[2025-06-08 16:33] LABS: SQUAMOUS EPITHELIAL CELL,UR FEW /LPF (FEW)
[2025-06-08] MEDS: ondansetron/PF 4mg/2ml inj IV STA (16:37)
[2025-06-08 16:47] LABS: MEAN PLATELET VOLUME 8.7 FL (7.4-10.4); RED CELL DISTRIBUTION WIDTH 13.6 % (11.5-14.5)
[2025-06-08 17:00] LABS: CREATININE 0.64 MG/DL (0.40-0.90); TOTAL CARBON DIOXIDE 21.7 MMOL/L (24-32); eCRCL 81 ML/MIN; eGFR > 90 ML/MIN
[2025-06-08] MEDS ORDERED: CEFP200T13 PO (17:34)
[2025-06-08] MEDS: CefTRIAXone 2gm/D5W 50ml BAG 50 ML IV ONE (17:37)
[2025-06-08 18:34] VITALS: BP 134/73; PULSE 94; RESP 20; TEMP 97.8; O2SAT 99
== END 2025-06-08 18:37 | disposition home or self-care (01) ==
LOC: ER 15:50
DX: N39.0 Urinary tract infection, site not specified (principal); R11.15 Cyclical vomiting syndrome unrelated to migraine; I10 Essential (primary) hypertension; G89.29 Other chronic pain; F17.210 Nicotine dependence, cigarettes, uncomplicated; E11.9 Type 2 diabetes mellitus without complications; K21.9 Gastro-esophageal reflux disease without esophagitis; F32.A Depression, unspecified; J44.9 Chronic obstructive pulmonary disease, unspecified; Z87.11 Personal history of peptic ulcer disease; Z87.440 Personal history of urinary (tract) infections; Z88.8 Allergy status to other drugs, medicaments and biological substances; Z88.1 Allergy status to other antibiotic agents; Z90.710 Acquired absence of both cervix and uterus; Z90.49 Acquired absence of other specified parts of digestive tract; Z79.899 Other long term (current) drug therapy
CPT/HCPCS: 36415; 80053; 81001; 81025; 83690; 85025; 87088; 96361; 96372; 96374; 96375; 99284; J0696; J1171; J1630; J2405; J7030

== ENCOUNTER 2025-07-16 07:19 | Emergency (ER) | payer MEDICARE, MEDICAID ==
[~2025-07-16] VITALS: Ht 154.9 cm; Wt 75.0 kg
--- NOTE | 2025-07-16 07:53 | Physician Documentation ---
History of Present Illness ~ General Chief Complaint: Abdominal Pain Stated Complaint: N/V Time Seen by MD: 07:51 Primary Medical Doctor: Dr. Chris Epperson Source: patient Mode of Arrival: EMS History of Present Illness Initial Comments CC: Abdominal pain with the nausea/vomiting HPI: Patient is a 50-year-old female with history of gastroparesis brought in by ambulance to the ED for evaluation of abdominal pain with associated nausea and vomiting for the past 24 hours. She describes the abdominal pain to be a constant 9/10 pain, and was given Zofran on route for her nausea. reports that the patient is currently going through her regular gastroparesis flare-ups and usually receives pain medications with IV fluids. Patient was scoped a few months ago and had a pyloroplasty. She also of the follows up with [facility] to manage her condition, and receives Botox injections every four months for the pain. She denies any chills, fevers, dysuria, hematuria, chest pain or shortness breath. ROS: Constitutional: Negative for fever and chills. HENT: Negative for sore throat and rhinorrhea. Eyes: Negative for pain and redness. Respiratory: Negative for cough and SOB. Cardiovascular: Negative for chest pain and palpitations. Gastrointestinal: Positive for nausea, vomiting and abdominal pain. Genitourinary: Negative for dysuria and hematuria. Musculoskeletal: Negative for acute back pain and acute neck pain. Skin: Negative for rash and pruritus. Neurological: Negative for acute numbness or weakness. PMH: GERD, GI bleed, peptic ulcer disease Medication Reconciliation Allergies: Coded Allergies: diphenhydramine (Verified Allergy, Intermediate, 06/08/25) prochlorperazine edisylate (Verified Allergy, Intermediate, SWELLING, 06/08/25) metoclopramide HCl (Verified Allergy, Unknown, 06/08/25) prochlorperazine maleate (Verified Allergy, Unknown, 06/08/25) vancomycin (Verified Adverse Reaction, Mild, HISTORY OF RED MAN SYNDROME, 06/08/25) Scheduled Ketoconazole (Ketoconazole), 1 APPLIC TP DAILY Methadone Hcl (Dolophine), 1 TAB PO DAILY, (Reported) ONDANSETRON ODT 4mg tablet (Ondansetron Odt), 8 MG PO Q6H, (Reported) Omeprazole (Prilosec), 1 CAP PO DAILY, (Reported) Ondansetron Hcl (Zofran), 1 TAB PO Q6H Scheduled PRN Bismuth Subsalicylate (Kaopectate), 2 TAB PO Q12H PRN for diarrhea Ondansetron Hcl (Zofran), 1 TAB PO Q6H PRN for nausea/vomiting Ondansetron Hcl (Zofran), 1 TAB PO Q6H PRN for nausea/vomiting Past Medical History Past Medical History: Hypertension, Asthma, COPD, *GI/HEPATOBILIARY*, GERD, GI Bleed, Peptic Ulcer Disease, UTI, Diabetes, Chronic Pain, Chronic Back Pain, Depression Other Past Medical History: Gastroparesis Past Surgical History: abdominal surgery, appendectomy, cholecystectomy, hysterectomy, orthopedic surgeries, other Other Past Surgical History: gastric stimulator, gastrostomy tube Other Past Family History: NONCONTRIBUTORY Alcohol Use: None Drug Use: none Lives with: Spouse Lives In: Home Occupation: student Physical Exam Physical Exam Vital Signs: Temperature: 98.0, Source: Oral, Heart Rate: 106, Respiratory Rate: 16, BP: 141/14, Pulse Oximetry: 98, Weight: 75.000 Oxygen Flow Rate: 0 Physical Exam General: Awake no distress. Verbal Head: No trauma Eyes: Nl lids Nl conjunctiva. No eye discharge ENT: Mucous membranes Nl. Lips Nl. No lesions Neck: Supple. No JVD. No visible mass Resp: Rate normal. No respiratory distress. No retractions. Normal air flow. No wheezes, rhonchi, or rales. Heart: Regular rhythm. No murmur. No rub Abdomen: Mild diffuse tenderness, multiple old abdominal scars, No guarding. No rebound. Gastric stimulator present. Musc/skeletal: No calf or popliteal tenderness. No edema Skin: No rash. No petechiae. Not diaphoretic Neuro: Alert, oriented. Normal speech Progress Progress Note Re-evaluate 10:00 a.m. patient appears more comfortable than on 1st evaluation. Discussed with the patient and the risks and benefits of CT. She would like to deferred and states that this is similar to multiple episodes she has had in the past. Awaiting urine. Records in the patient and states her white count has a often elevated during her flare-ups. Rechecked abdomen nontender Re-evaluate 10 20 the patient has been states she feels much better and wishes to leave now. They understand the urine is pending but they prefer to leave before comes back we got their phone number in case comes back positive where we can call in a prescription. I also address the issue was vomiting up fecal matter which they mentioned to the triage note. They both were adamant that she did not vomit of fecal matter. She states she vomited up food that did not smell good but both of them stated that it was not fecal matter. I again offered the CT which they both declined and at this point she wants to go home as soon as possible in his feeling much better. She is alert, oriented clearly has a capacity to make decisions. We had discussed the possibility of the bowel obstruction. 1101: Called the patient and her back regarding her negative urine analysis results. Results/Orders Results/Orders Completed Orders - LAINE SEYMOUR MD Urinalysis, Cult If Indicated (07/16/25 07:49) Hcg, Ur Ql (07/16/25 07:49) Cbc/Diff (07/16/25 07:49) Lipase (07/16/25 07:49) CMP (07/16/25 07:49) Ondansetron Inj. (Zofran 4mg/2ml Vial) (07/16/25 08:05) Normal Saline 1000ml (0.9% Sodium Chlori (07/16/25 08:05) Hydromorphone 1 Mg/Ml/Pf (Dilaudid Inj.) (07/16/25 08:05) Direct Bili (07/16/25 07:49) Hydromorphone/Pf 0.2mg/Ml Inj. (Dilaudid (07/16/25 09:45) Hydromorphone 1 Mg/Ml/Pf (Dilaudid Inj.) (07/16/25 10:00) Medications Received in ER Medications (Trade) Dose Ordered Sig/Yadira Route PRN Reason Start Time Stop Time Status Last Admin Dose Admin (Zofran 4mg/2ml vial) 4 mg ONCE ONCE IV 07/16/25 08:05 07/16/25 08:14 DC 07/16/25 08:15 4 MG (0.9% sodium chloride (NS) 1000ml IV soln) 1,000 ml ONCE ONCE IVB 07/16/25 08:05 07/16/25 08:06 DC 07/16/25 08:09 1,000 ML (Dilaudid inj.) 1 mg ONCE ONCE IV 07/16/25 08:05 07/16/25 08:06 DC 07/16/25 08:09 1 MG (Dilaudid inj.) 1 mg ONCE ONCE IV 07/16/25 10:00 07/16/25 10:01 DC 07/16/25 10:06 1 MG Vital Signs 07/16/25 07/16/25 07/16/25 07/16/25 07:21 07:26 08:00 08:09 Temp 98.0 98.4 Pulse 106 119 Resp 16 16 22 18 B/P (MAP) 141/14 130/103 (112) Pulse Ox 98 98 O2 Flow Rate 0 0 07/16/25 07/16/25 07/16/25 07/16/25 08:30 09:14 10:06 10:08 Pulse 109 102 Resp 18 16 19 19 B/P (MAP) 139/78 (98) 136/76 (96) Pulse Ox 98 98 O2 Flow Rate 0 0 07/16/25 10:39 Temp 97.9 Pulse 95 Resp 16 B/P (MAP) 136/78 Pulse Ox 98 Laboratory Tests Test 07/16/25 07:52 07/16/25 09:45 White Blood Count 18.9 H Red Blood Count 5.05 Hemoglobin 14.6 Hematocrit 44.0 Mean Corpuscular Volume 87.2 Mean Corpuscular Hemoglobin 28.9 Mean Corpuscular Hemoglobin Concent 33.2 Red Cell Distribution Width 13.3 Platelet Count 318 Mean Platelet Volume 9.1 Neutrophils (%) (Auto) 86.1 H Lymphocytes (%) (Auto) 6.0 L Monocytes (%) (Auto) 6.7 Eosinophils (%) (Auto) 1.0 Basophils (%) (Auto) 0.2 Neutrophils # (Auto) 16.2 H Lymphocytes # (Auto) 1.1 Monocytes # (Auto) 1.3 H Eosinophils # (Auto) 0.2 Basophils # (Auto) 0.0 CBC Comment Sodium Level 142 Potassium Level 3.9 Chloride Level 105 Carbon Dioxide Level 26.1 Anion Gap 11 Blood Urea Nitrogen 13 Creatinine 0.63 Estimated GFR/1.73 m2 > 90 BUN/Creatinine Ratio 20.6 H Glucose Level 142 H Calcium Level 9.0 Total Bilirubin 0.3 Direct Bilirubin < 0.1 Aspartate Amino Transf (AST/SGOT) 25 Alanine Aminotransferase (ALT/SGPT) 38 Alkaline Phosphatase 110 Total Protein 8.3 H Albumin 4.2 Globulin 4.1 Albumin/Globulin Ratio 1.0 L Lipase 16 Chemistry Comments Urine Specimen Description Cln catch midstream Urine Color Yellow Urine Clarity Clear Urine pH 5.5 Urine Specific [place] >=1.030 Urine Protein Negative Urine Glucose (UA) Negative Urine Ketones Negative Urine Occult Blood Negative Urine Nitrite Negative Urine Bilirubin Negative Urine Urobilinogen 0.2 Urine Leukocyte Esterase Negative Urine Culture Indicated Not ind Volume Urine Centrifuged 10 ml Urine HCG, Qualitative Negative Urine Comment Medical Decision Making Additional information obtaine: N/A Findings Patient is a 50-year-old female with history of gastroparesis brought in by leonardo blackwood to the ED for evaluation of abdominal pain with associated nausea and vomiting for the past 24 hours. She describes the abdominal pain to be a constant 9/10 pain, and was given Zofran on route for her nausea. reports that the patient is currently going through her regular gastroparesis flare-ups and usually receives pain medications with IV fluids. Patient was sco ped a few months ago and had a pyloroplasty. She also of the follows up with [facility] to manage her condition, and receives Botox injections every four months for the pain. She denies any chills, fevers, dysuria, hematuria, chest pain or shortness breath. Talat () Phone #: [phone] - Patient and requests to be called back with urine analysis results if results come back positive. MDM: Limited: (2 points from category 1 or one discussion with independent historian). Moderate: one of the following (3 points from category 1, or independent interpretations of tests performed by another physician/QHP: (ct,ecg,rad zain,rhythm strip,or comparing xray to prior), or discussion of tests or management with other professionals (not including [facility] ER doc/PA or family members.) High: (2 of 3 from : category 1 (3 points), independent interpretation of tests performed by another physician/QHP, and discussion of tests or management). Prior ER notes reviewed: Category 1: Number of Tests ordered or reviewed: >3 Number of Independent Historians: 1 Non [facility] ER notes reviewed: 1. 2. 3. Category 2: I independently interpreted the: [] Category 3: Discussion with other professionals: [] SOCIAL DETERMINANTS OF HEALTH Problems related to: ( )Challenges with access to Primary Care or Outpatient Speciality Care ( )Psychosocial circumstances such as mental health issues ( )Social environment: such as violence or substance abuse ( )Housing and economic circumstances: such as homelessness ( )Employment and unemployment: such as recently loss of employment ( )Occupational exposures or injuries: ( )Accessing ED outside of normal PCP hours ( )Language barrier: ( )Primary support group, including family circumstances: Prescription Management: Rx strength meds given in ED: [] New Prescriptions: [] ( )I have reviewed the patient's medications and I do not recommend any changes at this time. (Applies only if checked) Comorbid conditions include but are not limited to: [] Testing or interventions considered: [] Differential includes but is not limited to: [] Differential Diagnosis See MDM Departure Time of Disposition: 10:19 Disposition: 01 HOME / SELF CARE / HOMELESS Impression: Primary Impression: Acute abdominal pain Additional Impressions: History of diabetic gastroparesis Nausea and vomiting Condition: Stable Discharge Instructions: Gastroparesis, Nausea and Vomiting, Adult, [id number] Additional Instructions: Please follow up with your primary care provider regarding today's visit. We will call you back if your urine analysis is positive as requested. Return to the ED for any new or worsening symptoms. Continue current medications. Return for any bleeding, fever, increasing pain, or concerns. Start with a clear liquid diet and advance as tolerated. We wish you a rapid recovery and [facility] Referrals: NO PRIMARY CARE PROVIDER (PCP) Education Educated: Patient Educated regarding: diagnosis, treatment Signature Scribe Signature: Scribed for Laine Seymour MD by Ellie Salinas . 07/16/25 08:38 Attestation: Scribed for Laine Seymour MD by Laine Seymour. 07/16/25 0838 LAINE SEYMOUR MD Jul 16, 2025 07:53 ELLIE ESPINOSA Jul 16, 2025 08:51
[2025-07-16] MEDS: normal saline 1000ML IV soln IVB ONE (08:09)
[2025-07-16] MEDS: ondansetron/PF 4mg/2ml inj IV ONE (08:15)
[2025-07-16 08:23] LABS: MEAN PLATELET VOLUME 9.1 FL (7.4-10.4); RED CELL DISTRIBUTION WIDTH 13.3 % (11.5-14.5)
[2025-07-16 08:34] LABS: CREATININE 0.63 MG/DL (0.40-0.90); TOTAL CARBON DIOXIDE 26.1 MMOL/L (24-32); eCRCL 79 ML/MIN; eGFR > 90 ML/MIN
[2025-07-16] MEDS: HYDROmorphone/PF 0.2 MG/ML SYRINGE IV ONE (10:03)
[2025-07-16 10:29] LABS: LEUKOCYTE ESTERASE ,URINE NEGATIVE (Neg); NITRITES, URINE NEGATIVE (Neg); OCCULT BLOOD,URINE NEGATIVE (Neg)
[2025-07-16 10:31] LABS: UA COLLECTION TYPE CLN CATCH MIDSTREAM; URINE HCG NEGATIVE (NEG)
[2025-07-16 10:39] VITALS: BP 136/78; PULSE 95; RESP 16; TEMP 97.9; O2SAT 98
== END 2025-07-16 10:43 | disposition home or self-care (01) ==
LOC: ER 07:19
DX: R10.9 Unspecified abdominal pain (principal); R11.2 Nausea with vomiting, unspecified; E11.43 Type 2 diabetes mellitus with diabetic autonomic (poly)neuropathy; K31.84 Gastroparesis; G89.29 Other chronic pain; K21.9 Gastro-esophageal reflux disease without esophagitis; J44.9 Chronic obstructive pulmonary disease, unspecified; F32.A Depression, unspecified; I10 Essential (primary) hypertension; Z88.8 Allergy status to other drugs, medicaments and biological substances; Z87.11 Personal history of peptic ulcer disease; Z90.49 Acquired absence of other specified parts of digestive tract; Z90.710 Acquired absence of both cervix and uterus; Z87.440 Personal history of urinary (tract) infections; Z79.899 Other long term (current) drug therapy; Z98.890 Other specified postprocedural states
CPT/HCPCS: 36415; 80053; 81003; 81025; 82248; 83690; 85025; 96361; 96374; 96375; 96376; 99285; J1171; J2405; J7030

== ENCOUNTER 2025-07-17 21:40 | Emergency (ER) | payer MEDICARE, MEDICAID ==
[~2025-07-17] VITALS: Ht 154.9 cm; Wt 72.0 kg
[2025-07-17 21:44] VITALS: TEMP 98.6
--- NOTE | 2025-07-17 22:02 | Physician Documentation ---
History of Present Illness Chief Complaint: Abdominal Pain w/vomiting Stated Complaint: ABD PAIN OK to notify your PCP?: Yes Primary Medical Doctor: Dr. Chris Epperson Source: patient Mode of Arrival: POV Exam Limitations: no limitations HPI Patient was here yesterday for same symptoms of abdominal pain, nausea, vomiting . She has a history of gastroparesis and does have a nerve stimulator which has not currently turned on. She has a recent scope and pyloroplasty procedure done at [facility]. She reports that this feels different than her usual flare-up. She did out of getting a CT scan yesterday. Tried taking her Zofran at home with no relief. Patient has a extensive history of abdominal pains. No sick contacts no abuse or chills. She states she was having intense vomiting fused her film yesterday but now continues to have pain so she wanted a CAT scan this he if there was an acute abnormality. Medication Reconciliation Allergies: Coded Allergies: diphenhydramine (Verified Allergy, Intermediate, 07/17/25) prochlorperazine edisylate (Verified Allergy, Intermediate, SWELLING, 07/17/25) metoclopramide HCl (Verified Allergy, Unknown, 07/17/25) prochlorperazine maleate (Verified Allergy, Unknown, 07/17/25) vancomycin (Verified Adverse Reaction, Mild, HISTORY OF RED MAN SYNDROME, 07/17/25) Scheduled Ketoconazole (Ketoconazole), 1 APPLIC TP DAILY Methadone Hcl (Dolophine), 1 TAB PO DAILY, (Reported) ONDANSETRON ODT 4mg tablet (Ondansetron Odt), 8 MG PO Q6H, (Reported) Omeprazole (Prilosec), 1 CAP PO DAILY, (Reported) Ondansetron Hcl (Zofran), 1 TAB PO Q6H Scheduled PRN Bismuth Subsalicylate (Kaopectate), 2 TAB PO Q12H PRN for diarrhea Ondansetron Hcl (Zofran), 1 TAB PO Q6H PRN for nausea/vomiting Ondansetron Hcl (Zofran), 1 TAB PO Q6H PRN for nausea/vomiting Past Medical History Past Medical History: Hypertension, Asthma, COPD, *GI/HEPATOBILIARY*, GERD, GI Bleed, Peptic Ulcer Disease, UTI, Diabetes, Chronic Pain, Chronic Back Pain, Depression Past Surgical History: abdominal surgery, appendectomy, cholecystectomy, hysterectomy, orthopedic surgeries, other Other Past Surgical History: gastric stimulator, gastrostomy tube Other Past Family History: NONCONTRIBUTORY Alcohol Use: None Drug Use: none Lives with: Spouse Lives In: Home Occupation: student Review of Systems All Other Systems at this time: Reviewed and Negative ROS As stated above in the HPI, otherwise all systems are reviewed and negative. Physical Exam Vital Signs: RN Vital Signs have been reviewed: Yes, Temperature: 98.6, Source: Oral, Heart Rate: 117, Respiratory Rate: 19, BP: 156/101, Pulse Oximetry: 98, Weight: 72.000 Oxygen Flow Rate: 0 Physical Exam General: The patient is well developed, well nourished, nontoxic appearing and is in no acute distress. Skin: [place], warm and dry with no rashes. HEENT: Head was normocephalic and atraumatic. Eyes - pupils equal, round, reactive to light and accommodation. Extraocular movements were intact. Conjunctivae were nonicteric. The mouth and oropharynx were clear with moist mucous membranes. There were no pharyngeal exudates or erythema. Neck: Supple and nontender. There was no jugular venous distention, lymphadenopathy, thyromegaly or masses. Chest: Clear to auscultation bilaterally without wheezes, rales or rhonchi. No accessory muscle use. No dullness to percussion. Heart: Rate regular and rhythmic. S1, S2. No murmurs. Palpation of the chest wall was normal. No rubs or thrills. Abdomen: Soft, nontender and nondistended. Increased bowel sounds. No guarding or rebound. No hepatosplenomegaly or palpable masses. Extremities: No cyanosis, clubbing or edema. The patient moves all extremities. Pulses were equal and symmetric. Neurologic: Motor systems grossly intact. Psychologic: The patient was oriented to person, place and time. The patient demonstrated appropriate judgement and insight. Progress Results/Orders Reviewed/noted all lab results: Yes Results/Orders Orders - SANTIAGO SOOT Urinalysis, Cult If Indicated (07/17/25 21:55) Hcg, Ur Ql (07/17/25 21:55) Cbc/Diff (07/17/25 21:55) Saline Lock (07/17/25 21:55) Lipase (07/17/25 21:55) CMP (07/17/25 21:55) Ct Abdomen Pelvis (07/17/25 21:55) Ondansetron Inj. (Zofran 4mg/2ml Vial) (07/17/25 21:55) Normal Saline 1000ml (0.9% Sodium Chlori (07/17/25 21:55) Hydromorphone 1 Mg/Ml/Pf (Dilaudid Inj.) (07/17/25 22:00) Vital Signs 07/17/25 21:44 Temp 98.6 Pulse 117 Resp 19 B/P (MAP) 156/101 Pulse Ox 98 O2 Flow Rate 0 Re-Evaluation Re-Evaluation : Re-Evaluation: Improved Progress Patient states she is still complaining of abdominal pain. What much better. Patient's laboratory work was obtained her white count has resolved compared to yesterday which was elevated. Her white count today is 9.8 hemoglobin 13 hematocrit 41 with slight left shift of 77.1. Patient's chemistry shows no electrolyte abnormalities. Normal CO2 so no signs of metabolic acidosis LFTs liver function tests all within normal limits. Urinalysis was not collected however it is clear collar so she is well hydrated. She did receive a L fluid. Patient received pain medications a single dose of doxycycline was help for the CAT scan findings of possible enteritis. However she has a longstanding history of gastroenteritis and most likely baseline for this patient. She takes narcot ics and benzos denies any withdrawal symptoms at this time but she has been vomiting may not be absorbing her methadone well. Patient was then discharged home no additional medications were prescribed. Continuous equipment monitor phototypesetting interpretation shows sinus tachycardia heart rate 110s, abnormal, my interpretation. Pulse oximetry monitor interpretation shows normal oxygenation 99% room air, normal, my interpretation. EKG/XRAY/CT/US/VASC/MRI CT : Interpreted By: radiologist CT: abdomen/pelvis With Contrast?: Yes Impression CAT SCAN Patient: YO POLLACK Medical Record: [id number] [facility] : 1975, Age: 50 Sex: Female Location: ER Patient Status: [facility] ER Service Date/Time: 07/17/252319 Ordering Physician: SANTIAGO SOTO Exam: CT ABDOMEN PELVIS EXAM: CT CT ABDOMEN PELVIS W/ IV CONTRAST HISTORY: abd pain, vomiting, seen yesterday for the same w/o CT, hx gastroparesis COMPARISON STUDY: CT ABDOMEN PELVIS on DOS: 06/22/21 TECHNIQUE: A digital extraction machine operator image was obtained. During the uneventful, intravenous administration of contrast material, multislice data acquisition was obtained through the abdomen and pelvis. The data set was subsequently reconstructed into multiplanar reformats. RADIATION DOSE: CTDI vol 18.3 mGy. DLP 878.2 mGy.cm FINDINGS: Lungs: The lung bases are clear. Liver: Unremarkable. Spleen: Unremarkable. Pancreas: Unremarkable. Gallbladder: Cholecystectomy. Adrenals: Unremarkable Kidneys: Unremarkable. Pelvic Viscera: Prior hysterectomy. Vasculature: Unremarkable. Retroperitoneum: Unremarkable. Bowel: No bowel obstruction. Prior appendectomy. Nonspecific fluid-filled and mildly distended stomach with scattered loops of fluid-filled small bowel. Musculoskeletal: Unremarkable. Soft tissues: A device is redemonstrated within the left ventral subcutaneous tissues. IMPRESSION: 1. Nonspecific fluid-filled stomach and small bowel raise the possibility of an enteritis in the appropriate clinical setting. 2. Additional findings as detailed. Electronically Signed by:MALKA MICHAUD MD Date & Time: 07/17/252345 Dictated by: MALKA MICHAUD MD Dictation date and time: 07/17/252345 Primary Care Provider: NO PRIMARY CARE PROVIDER cc: SANTIAGO SOTO ~ Medical Decision Making Additional information obtaine: old records Findings CT scan obtained shows enteritis laboratory work improved and normalized from the day prior Differential Dx:Considerations: Appendicitis, Bowel obstruction, Cholangitis, Cholelithasis, Constipation, Esophagitis, Gastritis/PUD, Gastroenteritis, GI hemorrhage, Hernia, Hepatitis, Inflammatory BD, Ischemic bowel, Urinary obstruction, Urinary tract infection Departure Disposition: 01 HOME / SELF CARE / HOMELESS Impression: Primary Impression: Gastroparesis Additional Impression: Abdominal pain Qualified Codes: R10.13 - Epigastric pain Condition: Stable Discharge Instructions: Gastroparesis Referrals: NO PRIMARY CARE PROVIDER (PCP) Education Educated: Patient, Family Educated regarding: diagnosis, treatment, need for follow up Signature Scribe Signature: Scribed for Eliezer Meier MD by Yvette Salinas . 07/18/25 00:40 Attestation: The note accurately reflects work and decisions made by me.Eliezer Meier MD 07/18/25 00:28 SANTIAGO SOTO Jul 17, 2025 22:02 ELIEZER MEIER MD Jul 18, 2025 00:34 YVETTE MEIER Jul 18, 2025 00:37
[2025-07-17] MEDS: ondansetron/PF 4mg/2ml inj IV ONE (23:06)
[2025-07-17] MEDS: normal saline 1000ML IV soln IVB ONE (23:10)
[2025-07-17] MEDS ORDERED: iohexol 300mg/ml 100ml inj. ONE (23:15)
[2025-07-17 23:18] LABS: MEAN PLATELET VOLUME 8.2 FL (7.4-10.4); RED CELL DISTRIBUTION WIDTH 12.9 % (11.5-14.5)
[2025-07-17 23:33] LABS: CREATININE 0.64 MG/DL (0.40-0.90); TOTAL CARBON DIOXIDE 25.5 MMOL/L (24-32); eCRCL 78 ML/MIN; eGFR > 90 ML/MIN
--- NOTE | 2025-07-17 23:48 | RADIOLOGY REPORT ---
EXAM: CT CT ABDOMEN PELVIS W/ IV CONTRAST HISTORY: abd pain, vomiting, seen yesterday for the same w/o CT, hx gastroparesis COMPARISON STUDY: CT ABDOMEN PELVIS on DOS: 06/22/21 TECHNIQUE: A digital staff developer image was obtained. During the uneventful, intravenous administration of contrast material, multislice data acquisition was obtained through the abdomen and pelvis. The data set was subsequently reconstructed into multiplanar reformats. RADIATION DOSE: CTDI vol 18.3 mGy. DLP 878.2 mGy.cm FINDINGS: Lungs: The lung bases are clear. Liver: Unremarkable. Spleen: Unremarkable. Pancreas: Unremarkable. Gallbladder: Cholecystectomy. Adrenals: Unremarkable Kidneys: Unremarkable. Pelvic Viscera: Prior hysterectomy. Vasculature: Unremarkable. Retroperitoneum: Unremarkable. Bowel: No bowel obstruction. Prior appendectomy. Nonspecific fluid-filled and mildly distended stomach with scattered loops of fluid-filled small bowel. Musculoskeletal: Unremarkable. Soft tissues: A device is redemonstrated within the left ventral subcutaneous tissues. IMPRESSION: 1. Nonspecific fluid-filled stomach and small bowel raise the possibility of an enteritis in the appropriate clinical setting. 2. Additional findings as detailed.
[2025-07-18] MEDS: DOXYCYCLINE 100MG CAPSULE PO STA (00:47)
[2025-07-18 00:57] VITALS: BP 118/87; PULSE 95; RESP 15; O2SAT 96
[2025-07-18 01:16] LABS: URINE HCG NEGATIVE (NEG)
[2025-07-18 01:21] LABS: LEUKOCYTE ESTERASE ,URINE NEGATIVE (Neg); NITRITES, URINE NEGATIVE (Neg); OCCULT BLOOD,URINE NEGATIVE (Neg)
[2025-07-18 01:40] LABS: UA COLLECTION TYPE CLN CATCH MIDSTREAM
== END 2025-07-18 00:58 | disposition home or self-care (01) ==
LOC: ER 21:41
DX: E11.43 Type 2 diabetes mellitus with diabetic autonomic (poly)neuropathy (principal); K31.84 Gastroparesis; J44.9 Chronic obstructive pulmonary disease, unspecified; G89.29 Other chronic pain; F32.A Depression, unspecified; I10 Essential (primary) hypertension; K21.9 Gastro-esophageal reflux disease without esophagitis; Z87.11 Personal history of peptic ulcer disease; Z87.440 Personal history of urinary (tract) infections; Z90.710 Acquired absence of both cervix and uterus; Z90.49 Acquired absence of other specified parts of digestive tract; Z88.8 Allergy status to other drugs, medicaments and biological substances; Z88.1 Allergy status to other antibiotic agents; Z79.899 Other long term (current) drug therapy; Z98.890 Other specified postprocedural states
CPT/HCPCS: 36415; 74177; 80053; 81003; 81025; 83690; 85025; 96361; 96374; 96375; 96376; 99285; J1171; J2405; J7030; Q9967